=== PATIENT | female | born 1940 | race Caucasian/White ===

== ENCOUNTER → 2023-08-23 16:48 | Outpatient (REF) | payer OTHER, SELFPAY ==
[2023-08-23 17:49] LABS: % Basophils 0.3 % (0-2); % Eosinophils 1.2 % (0-6); % Immature Granulocytes 0.4 % (0-0.5); % Lymphocytes 19.9 % (20.5-51.1); % Monocytes 13.9 % (1.7-9.3); % Neutrophils 64.3 % (42.2-75.2); Absolute Eosinophils 0.1 10^3/uL (0-0.7); Absolute Lymphocytes 1.5 10^3/uL (1.2-3.4); Absolute Monocytes 1.1 10^3/uL (0.1-0.6); Mean Corp Hgb Conc. 33.3 g/dL (33.0-37.0); Mean Corpuscular Hgb 34.3 pg (27.0-31.0); Mean Corpuscular Volume 102.9 fL (81.0-99.0); Mean Platelet Volume 9.6 fL (7.4-10.4); Nucleated Red Blood Cells % 0 %; Platelet Count 194 10^3/uL (130-400); Red Blood Cell Count 3.79 10^6/uL (4.20-5.40); Red Cell Dist. Width 13.3 % (11.5-14.5); White Blood Cell Count 7.8 10^3/uL (4.8-10.8)
[2023-08-23 18:07] LABS: Albumin 4.1 g/dl (3.5-5.0); Blood Urea Nitrogen 21 mg/dl (7-17); Calcium 9.7 mg/dl (8.4-10.2); Carbon Dioxide 31 mmol/L (22-30); Chloride 102 mmol/L (98-107); Glucose 105 mg/dl (70-99); Phosphorus 3.8 mg/dl (2.5-4.5); Potassium 4.1 mmol/L (3.5-5.1); Sodium 141 mmol/L (135-145); eGFR 49.55
[2023-08-23 18:10] LABS: NT-proBNP 584 pg/ml
== END ==
LOC: REG 16:48
PROVIDERS: ATTENDING PHYSICIAN Internal Medicine
DX: I87.2 Venous insufficiency (chronic) (peripheral) (principal); I10 Essential (primary) hypertension; I48.0 Paroxysmal atrial fibrillation
CPT/HCPCS: 36415; 80069; 83880; 85025

== ENCOUNTER 2023-08-27 18:34 | Emergency (ER) | payer OTHER, SELFPAY ==
[2023-08-27 18:41] VITALS: BP 154/95
[2023-08-27 20:12] VITALS: BMI 39.6
--- NOTE | 2023-08-27 20:29 | ED.GENMED ---
History of Present Illness
General
Chief Complaint: Swelling
Source: patient
Exam Limitations: none
Time Seen by Provider: 08/27/23 20:06
Travel History
Have you had any contact with someone who has COVID-19?: No
Do you have any symptoms of coronavirus? Fever > 100 degrees, chills, cough, shortness of breath, sore throat, loss of taste or smell, muscle aches, or headache?: No
History of Present Illness
History of Present Illness:
83-year-old female complaining of bilateral lower extremity swelling and fluid leaking.. No chest pain or shortness of breath. Symptoms for a few weeks but is vague about the onset. Patient states 1 month ago she was doing well with swelling
after seeing her dairy clerk. At that time she had stopped her diuretic but he stated she should take it 3 days a week. Since then she admits she has not been faithful about taking it. She took it once earlier in the week and took it yesterday.
Past History
Past History
ED Past Medical History: CVA, GERD, HTN, Other (pulmonary embolism, neuropathy) and Other (Restless leg syndrome)
ED Past Surgical History: Orthopedic and Tonsilectomy
Social History
Tobacco: Non-smoker
Alcohol: Occasional
Drug: None
Personal:
Living: with family
Family History
Family History: Diabetes, CAD and Other (Peripheral neuropathy)
Review of Systems
Review of Systems
All Other Systems: Not applicable
Constitutional: Denies fever
Respiratory: Reports no symptoms
Cardiac: Reports no symptoms
Phy Exam
Physical Exam
Physical Exam:
GENERAL: Alert and oriented in no apparent distress
EYE: Orbits normal.
NECK: Supple
CARDIAC: Regular rate and rhythm without any obvious murmurs.
LUNGS: Clear breath sounds,normal
ABDOMEN: Soft, without focal tenderness or distention. Elevated BMI
NEUROLOGICAL: Alert and oriented , grossly non-focal
SKIN: Warm and dry, mild diffuse erythematous changes to both lower extremities left greater than right. Small open wound to the right lower extremity anteriorly with some clear oozing
MUSCULOSKELETAL: Significant lower extremity pitting edema bilaterally. Symmetrical. Good distal pulses and color
PSYCH: Normal and appropriate interaction.
Scores
Heart Failure Risk
Heart Failure Risk Score: Yes
History of Stroke or TIA: No
History of intubation for respiratory distress: No
Heart rate on ED arrival >/= 110: No
SaO2 <90% on arrival on room air: No
HR >/=110 during 3min walk test (or too ill to perform test): No
ECG has acute ischemic changes: No
Urea >/=12mmol/L (BUN 33.6mg/dL): No
Serum CO2>/=35mmol/L: No
Troponin I or T elevated to ND Level (0.4mg/dL): No
NT-proBNP >/=5,000ng/L (5,000pg/ml): No
HF Risk Score: 0
Admission Status: LOW RISK 2.8% Consider discharge to home with f/u visit to PCP/Orthotist/Prosthetist
Course
Orders/Labs/Results
Orders:
Orders
08/27/23 20:20
Electrocardiogram (*1) Stat
Reason for Study: Other
Other Reason for Exam: chest pain
EKG- Treatment ONCE
CXR2 [CR Chest - 2 Views ] Urgent
Comment:
Reason For Exam: swelling. fluid retention
08/27/23 20:29
BNP [NT-proBNP] Urgent
Complete Blood Count/With Diff Urgent
Comprehensive Metabolic Panel Urgent
08/27/23 21:54
Furosemide [Lasix] 40 mg IV NOW STA
08/27/23 22:10
Doxycycline [Vibramycin] 100 mg PO NOW STA
Abnormal Lab Results
08/27/23
20:29
RBC 3.82 L 10^6/uL
(4.20-5.40)
MCV 100.5 H fL
(81.0-99.0)
MCH 34.6 H pg
(27.0-31.0)
Absolute Monos (auto) 0.9 H 10^3/uL
(0.1-0.6)
Monocytes % 11.8 H %
(1.7-9.3)
Sodium 134 L mmol/L
(135-145)
BUN 30 H mg/dl
(7-17)
Creatinine 1.4 H mg/dL
(0.6-1.0)
Glucose 109 H mg/dl
(70-99)
08/27/23 20:29
08/27/23 20:29
Vital Signs
Initial and Last Documented VS:
Initial Vital Signs
Temp Pulse Resp BP Pulse Ox
98.3 F 85 18 154/95 97
08/27/23 18:41 08/27/23 18:41 08/27/23 18:41 08/27/23 18:41 08/27/23 18:41
Last Documented Vital Signs
Temp Pulse Resp BP Pulse Ox
98.3 F 76 16 154/87 98
08/27/23 18:41 08/27/23 22:20 08/27/23 22:20 08/27/23 22:20 08/27/23 22:20
MDM/Problems Addressed
Differential Diagnosis Includes:
Bilateral lower extremity edema. Highly doubt DVT given bilateral nature. On Xarelto and faithful. Evaluate for renal issue CHF. Likely at least partially secondary to medication noncompliance. Workup in progress
*Radiology
Radiology exam reviewed: radiology read reviewed (Mild CHF)
*Pulse Oximetry
Patient hypoxic: no
*EKG
Interpretation: normal
Comparison EKG: no changes
Heart Rate: 71
Rate: normal
Rhythm: sinus
Friendship: left axis deviation
Interval: normal interval
QRS Pattern: normal QRS
Ischemia: no ischemia
*Critical Care Note
Total Time (30-74mins, 75-104mins- exclusive of procedures): Not Applicable
Data Reviewed
Review of Other/Old Records Reveals: Labs, Records and Testing
Update Note
Update Note:
Patient's weight up 1.3 kg from April and about 5 kg from October 2021
Patient clinically very stable. In no respiratory distress. No true respiratory symptoms. Bilateral lower extremity edema. Offered inpatient management although medically not necessary. She is comfortable with increasing her diuretic and close
outpatient follow-up. There is some erythema to the left greater than right leg. Doubt cellulitis but will cover with Doxycycline
ED Attending Note
-
Portions of this chart may have been created with voice recognition software.� Occasional wrong word or��sound alike� substitutions may have occurred due to the inherent limitations of voice recognition software.
Discharge Plan
Departure
Patient Disposition: Home (Routine Discharge)
Date of Disposition: 08/27/23
Time of Disposition: 22:08
Patient with high blood pressure during this ER visit?: Yes
Discharge Problem:
Peripheral edema/mild CHF
Instructions: Dependent Edema (DC), *CBC Heart Failure Instructions, BLOOD PRESSURE
Prescriptions:
New
doxycycline hyclate 100 mg capsule
100 mg PO BID 10 Days Qty: 20 0RF
No Action
ropinirole 1 MG tablet
1 mg PO HS
Rx Instructions:
1-3 hour before bedtime
trazodone 50 MG tablet
50 mg PO HS
Patient Comments:
pt states she hasn't used in 6 months
Caltrate-D3 Plus Minerals 1 EACH tablet
1 tab PO BID
loratadine 10 MG tablet
10 mg PO DAILY PRN (Reason: allergies)
fluticasone propionate 1 SPRAY spray,suspension
2 spray intranasal HS
losartan 50 MG tablet
50 mg PO DAILY 0RF
gabapentin 600 mg Tablet
600 mg PO BID@0600,1200
gabapentin 600 mg Tablet
1,200 mg PO HS
simvastatin 10 mg Tablet
10 mg PO QPM
Saline Mist 0.65 % Aerosol,[place]
2 spray INTRANASAL BID
fluticasone propion-salmeterol [Advair HFA] 230-21 mcg/actuation Hfa Aerosol Inhaler
2 puff INHALATION BID
Xarelto 20 MG tablet
20 mg PO DAILY
Referrals:
Joe Henderson MD [Family Provider] - Follow up in 2-3 days
Activity Restrictions/Additional Instructions:
Take one of your Lasix(furosemide) tablets daily for the next 3 days
Call your physicians Wednesday for close follow-up
Interventions
Interventions:
*Risk Screen - Suicide Last Done: 08/27/23 18:41
*General Assessment Last Done: 08/27/23 18:41
*Neglect/Abuse Screening Last Done: 08/27/23 20:12
ED- Fall Risk Assessment Last Done: 08/27/23 20:43
*ED COVID-19 Vaccine History Last Done: 08/27/23 20:12
ED- Cardiac Assessment Last Done: 08/27/23 20:43
ED- Pulmonary Assessment Last Done: 08/27/23 20:43
ED-Skin Assessment Last Done: 08/27/23 20:43
[2023-08-27 20:31] VITALS: BP 149/77
[2023-08-27 20:37] LABS: % Basophils 0.4 % (0-2); % Eosinophils 1.5 % (0-6); % Immature Granulocytes 0.4 % (0-0.5); % Lymphocytes 20.9 % (20.5-51.1); % Monocytes 11.8 % (1.7-9.3); Absolute Eosinophils 0.1 10^3/uL (0-0.7); Absolute Lymphocytes 1.5 10^3/uL (1.2-3.4); Absolute Monocytes 0.9 10^3/uL (0.1-0.6); Absolute Neutrophils 4.8 10^3/uL (1.4-6.5); Hematocrit 38.4 % (37.0-47.0); Hemoglobin 13.2 g/dL (12.0-16.0); Mean Corp Hgb Conc. 34.4 g/dL (33.0-37.0); Mean Corpuscular Hgb 34.6 pg (27.0-31.0); Mean Corpuscular Volume 100.5 fL (81.0-99.0); Mean Platelet Volume 9.2 fL (7.4-10.4); Nucleated Red Blood Cells % 0 %; Platelet Count 178 10^3/uL (130-400); Red Blood Cell Count 3.82 10^6/uL (4.20-5.40); Red Cell Dist. Width 13.2 % (11.5-14.5); White Blood Cell Count 7.4 10^3/uL (4.8-10.8)
--- NOTE | 2023-08-27 20:43 | EDRN ---
Pt says she saw wine fermenter about 3 weeks ago and her legs were fine. She was told to take her water pill 3xs/week but pt says she has not been doing that because she has been busy and often is concerned about having to go to the bathroom if she
takes it. Pt noted her lower legs started swelling 2 weeks ago. Pt saw Dr Hughes couple days ago and was again instructed to take her water pill. Pt notes increased swelling to b/l LE and has a small tear on anterior LE that is weeping. Pt
denies cp, sob, abd pain, weakness, dizziness, fever/chills/cough, urinary symptoms.
[2023-08-27 20:50] LABS: ALT (SGPT) 22 U/L (0-35); AST (SGOT) 34 U/L (14-36); Albumin 3.9 g/dl (3.5-5.0); Alkaline Phosphatase 77 U/L (38-126); Blood Urea Nitrogen 30 mg/dl (7-17); Calcium 9.3 mg/dl (8.4-10.2); Carbon Dioxide 27 mmol/L (22-30); Chloride 102 mmol/L (98-107); Estimated Creatinine Clearance 39 ml/min; Glucose 109 mg/dl (70-99); Potassium 4.4 mmol/L (3.5-5.1); Sodium 134 mmol/L (135-145); Total Bilirubin 0.7 mg/dl (0.2-1.3); Total Protein 6.7 g/dl (6.3-8.2)
[2023-08-27 20:56] LABS: NT-proBNP 238 pg/ml
[2023-08-27 21:39] VITALS: BP 146/82
[2023-08-27 22:00] VITALS: BP 145/74
[2023-08-27 22:20] VITALS: BP 154/87
[2023-08-27] MEDS: VIBRAMYCIN 100 MG PO (22:21)
[2023-08-27] MEDS: LASIX 40 MG IV (22:22)
--- NOTE | 2023-08-27 22:31 | EDRN ---
EDT dressed RLE wound with gauze pads and wrapped with gauze
== END 2023-08-27 22:35 | disposition home or self-care (01) ==
LOC: EMR 18:34
PROVIDERS: Emergency Medicine; EMERGENCY PHYSICIAN Emergency Medicine; FAMILY PHYSICIAN Internal Medicine
DX: I50.9 Heart failure, unspecified (principal); R60.9 Edema, unspecified; I11.0 Hypertensive heart disease with heart failure
CPT/HCPCS: 99285; 96374; 71046; 80053; 83880; 85025; 93005

== ENCOUNTER 2023-08-29 01:05 | Inpatient (IN) | payer OTHER, SELFPAY ==
[2023-08-28 20:15] VITALS: BMI 40.1
[2023-08-28 20:29] VITALS: BP 121/79
[2023-08-28 20:54] LABS: % Basophils 0.2 % (0-2); % Eosinophils 1.5 % (0-6); % Immature Granulocytes 0.5 % (0-0.5); % Lymphocytes 18.6 % (20.5-51.1); % Monocytes 12.5 % (1.7-9.3); % Neutrophils 66.7 % (42.2-75.2); Absolute Eosinophils 0.1 10^3/uL (0-0.7); Absolute Lymphocytes 1.6 10^3/uL (1.2-3.4); Absolute Monocytes 1.1 10^3/uL (0.1-0.6); Absolute Neutrophils 5.9 10^3/uL (1.4-6.5); Hematocrit 38.4 % (37.0-47.0); Mean Corp Hgb Conc. 33.9 g/dL (33.0-37.0); Mean Corpuscular Hgb 34.7 pg (27.0-31.0); Mean Corpuscular Volume 102.4 fL (81.0-99.0); Mean Platelet Volume 9.2 fL (7.4-10.4); Nucleated Red Blood Cells % 0 %; Platelet Count 185 10^3/uL (130-400); Red Blood Cell Count 3.75 10^6/uL (4.20-5.40); Red Cell Dist. Width 13.2 % (11.5-14.5); White Blood Cell Count 8.8 10^3/uL (4.8-10.8)
[2023-08-28 21:30] LABS: ALT (SGPT) 24 U/L (0-35); AST (SGOT) 44 U/L (14-36); Albumin 4.2 g/dl (3.5-5.0); Alkaline Phosphatase 79 U/L (38-126); Blood Urea Nitrogen 35 mg/dl (7-17); Calcium 9.2 mg/dl (8.4-10.2); Carbon Dioxide 28 mmol/L (22-30); Chloride 104 mmol/L (98-107); Glucose 106 mg/dl (70-99); Potassium 4.5 mmol/L (3.5-5.1); Sodium 137 mmol/L (135-145); Total Bilirubin 0.9 mg/dl (0.2-1.3); Total Protein 6.9 g/dl (6.3-8.2); eGFR 25.72
[2023-08-28 21:40] LABS: NT-proBNP 200 pg/ml
--- NOTE | 2023-08-28 23:32 | ED.GENMED ---
History of Present Illness
General
Chief Complaint: Swelling
Source: patient
Exam Limitations: none
Time Seen by Provider: 08/28/23 23:18
Travel History
Have you had any contact with someone who has COVID-19?: No
Do you have any symptoms of coronavirus? Fever > 100 degrees, chills, cough, shortness of breath, sore throat, loss of taste or smell, muscle aches, or headache?: No
History of Present Illness
History of Present Illness:
83-year-old female presents complaining of increased swelling and pain to the bilateral lower extremities. She was seen here last night with lower extremity edema. Given IV Lasix but then discharged. She states she is not urinating. Please note
that the triage note says that she is urinating more frequency but she has not been urinating as frequent since the administration of the diuretic. She denies chest pain or new onset shortness of breath. She is on Xarelto and has not missed any
doses. She notes increased fluid oozing from the legs.
Past History
Past History
ED Past Medical History: CVA, GERD, HTN, Other (pulmonary embolism, neuropathy) and Other (Restless leg syndrome)
ED Past Surgical History: Orthopedic and Tonsilectomy
Social History
Tobacco: Non-smoker
Alcohol: Occasional
Drug: None
Personal:
Living: with family
Family History
Family History: Diabetes, CAD and Other (Peripheral neuropathy)
Phy Exam
Physical Exam
Physical Exam:
General: Well-appearing female no acute distress
HEENT: Normocephalic atraumatic
Heart: Regular rate and rhythm no murmurs
Lungs: Clear to auscultation bilaterally no wheezing
Abdomen is soft nondistended nontender no guarding rebound normal bowel sounds
Extremities: No cyanosis but significant pitting edema bilateral lower extremities. There is a serous drainage noted from the right leg.
Vascular: Palpable pulses dorsal aspect bilateral feet
Scores
Heart Failure Risk
Heart Failure Risk Score: Not Applicable
Course
Orders/Labs/Results
Orders:
Orders
08/28/23 20:47
Complete Blood Count/With Diff Urgent
Comprehensive Metabolic Panel Urgent
NT-proBNP Urgent
08/28/23 23:37
Furosemide [Lasix] 20 mg IV NOW STA
Abnormal Lab Results
08/28/23
20:47
RBC 3.75 L 10^6/uL
(4.20-5.40)
MCV 102.4 H fL
(81.0-99.0)
MCH 34.7 H pg
(27.0-31.0)
Absolute Monos (auto) 1.1 H 10^3/uL
(0.1-0.6)
Lymphocytes % 18.6 L %
(20.5-51.1)
Monocytes % 12.5 H %
(1.7-9.3)
BUN 35 H mg/dl
(7-17)
Creatinine 1.9 H mg/dL
(0.6-1.0)
Glucose 106 H mg/dl
(70-99)
AST 44 H U/L
(14-36)
08/28/23 20:47
08/28/23 20:47
Vital Signs
Initial and Last Documented VS:
Initial Vital Signs
Temp Pulse Resp BP Pulse Ox
98.2 F 90 18 121/79 94
08/28/23 20:29 08/28/23 20:29 08/28/23 20:29 08/28/23 20:29 08/28/23 20:29
Last Documented Vital Signs
Temp Pulse Resp BP Pulse Ox
98.2 F 90 18 121/79 94
08/28/23 20:29 08/28/23 20:29 08/28/23 20:29 08/28/23 20:29 08/28/23 20:29
MDM/Problems Addressed
Differential Diagnosis Includes:
Volume excess. Question possible CHF. She was given Lasix last evening but has not noticed any improvement. She notes increased pain to her legs. Both legs are slightly erythematous. She was started on doxycycline Assubel cellulitis. Kidney
functions today have worsened from 1.4 yesterday of the creatinine to 1.9 today. Yesterday showed mild CHF.
*Critical Care Note
Total Time (30-74mins, 75-104mins- exclusive of procedures): Not Applicable
Update Note
Update Note:
No urinary retention on bladder scan. Patient failing to respond to increasing diuretic from yesterday. She is volume overloaded with worsening kidney function. Will admit to hospital
ED Attending Note
-
Portions of this chart may have been created with voice recognition software.� Occasional wrong word or��sound alike� substitutions may have occurred due to the inherent limitations of voice recognition software.
Discharge Plan
Departure
Patient Disposition: Admit
Date of Disposition: 08/28/23
Time of Disposition: 23:40
Admit to: Telemetry
Presentation/result/management discussed w/ accepting MD/DO: Hospitalist
Discharge Problem:
Volume overload
Prescriptions:
No Action
ropinirole 1 MG tablet
1 mg PO HS
Rx Instructions:
1-3 hour before bedtime
trazodone 50 MG tablet
50 mg PO HS
Patient Comments:
pt states she hasn't used in 6 months
Caltrate-D3 Plus Minerals 1 EACH tablet
1 tab PO BID
loratadine 10 MG tablet
10 mg PO DAILY PRN (Reason: allergies)
fluticasone propionate 1 SPRAY spray,suspension
2 spray intranasal HS
losartan 50 MG tablet
50 mg PO DAILY 0RF
gabapentin 600 mg Tablet
600 mg PO BID@0600,1200
gabapentin 600 mg Tablet
1,200 mg PO HS
simvastatin 10 mg Tablet
10 mg PO QPM
Saline Mist 0.65 % Aerosol,[place]
2 spray INTRANASAL BID
fluticasone propion-salmeterol [Advair HFA] 230-21 mcg/actuation Hfa Aerosol Inhaler
2 puff INHALATION BID
Xarelto 20 MG tablet
20 mg PO DAILY
doxycycline hyclate 100 mg capsule
100 mg PO BID 10 Days Qty: 20 0RF
Referrals:
Joe Henderson MD [Family Provider] -
Interventions
Interventions:
*Risk Screen - Suicide Last Done: 08/28/23 20:32
*General Assessment Last Done: 08/28/23 20:32
*Neglect/Abuse Screening Last Done: 08/28/23 20:33
[2023-08-28 23:37] VITALS: BP 128/59
--- NOTE | 2023-08-28 23:43 | HPS.HSE ---
Addendum entered and electronically signed by Dashawn Caemron MD 08/29/23 00:22:
I saw and examined the patient.
The DIGESTION OPERATOR or PA's note was reviewed and I agree with the note.
Comment:
HPI
83F Obese HX PE on Eliquis, KEI , HX intolerance to CPAP seen at ER yesterday for b/l Radha edema. IV lasix 20 was given and DC'd. She was on PO lasix 40 daily. She returned to ER today due to b/l Radha with edema , redness and weeping from from
ruptured blisters.
ROS
Report decreased urine output
PHX
HX bilateral pulmonary embolus/cerebrovascular accident.
Essential hypertension.
Restless legs syndrome, neuropathy.
HX Subclinical hypothyroid.
HX hyponatremia.
Orthopedic
Tonsillectomy
SHX
Tobacco: Non-smoker
Alcohol: Occasional
Drug: None
Personal:
Living: with family
FHX
Diabetes, CAD and Other (Peripheral neuropathy)
Reviewed VS: unremarkable
PE
BMI 39 class II obesity
Gen: not toxic
HEENT: anicteric
Neck: supple, cannot see JVD
Lungs: CTA
Cor: RRR S1 S2
Abdomen: soft NT NG NRT
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
MS: significant pitting edema bilateral lower extremities + b/l warm aching erythema a with faint demarcation + coin size small weeping ulcer at Rt jay.
Psych: appropriate
Data
Unremarkable CBC
BUN 35
Cr 1.9 - 1.4 yesterday, base line is low 1s
GFR 25- was 37 , suspect CKD3
proBNP 200
08/26/ CXR: Mild CHF
11/18/21 ECHO:
LVEF 60-65
Mild
Mild TR
Last hospitalist admission: 11/06/21 - 5/26/22
DC Dx: Age-indeterminate intra-articular fracture involving the left femoral head with subchondral component.
ASSESSMENT & PLAN
Pending Rx reconciliation
Probably b/l Radha cellulitis with worsening b/l Radha edema with serosanguineous drainage
Unremarkable pro BNP for acute HF
Suspect underlying chr venous stasis
- Allergy to PCN
- Empiric IV vancomycin. DC'd PO doxycycline
- check b/l Leg US
- Hold off further Lasix
- ECHO to sharmaine RV and LV, PHT
- CBC card consult
WANDA - likley overdiuresis rather than cardiorenal syndrome due to RHF or CHF
NEG retention per ER bladder scan
HX CKD3
- Held Losartan
- Held Lasix and observe Cr
- Renal consult
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
HX Bilateral PE in the setting of immobilization: on xarelto
HX CVA.
Essential hypertension: held losartan due to WANDA
HX hyponatremia.
HX KEI : She was intolerant to CPAP
HX COPD history, we did continue her on Advair and DuoNebs.
Restless legs syndrome: cont. Requip.
Neuropathy: cont gabapentin.
HX Subclinical hypothyroidism
DVT Px: on Xarelto
Code: Full code
IP TLM
Original Note:
Family Physician
-
Family Physician: Joe Henderson
Chief Complaint
-
b/l LE edema
History of Present Illness
83-year-old female with PMH for PE, CVA,GERD<HTN, RLS, CHF presented to us with b/l LE edema for past two weeks. her PCP recommended to continue to take Lasix. she was evaluated in the ER last night, gave a dose of IV Lasix and sent home. patient
stated, she did not voided much. stated sob with mild exertion. B/L LE draining today. she thinks she might have gained, but does not weigh herself. denied chest pain. denied fever, chills, runny nose, congestion, cough. denied RUEDA, dizzy or
syncopal episode. denied abdominal pain, n,v, d. denied dysuria or hematuria.
patient received a dose of Lasix in ER. admitting for further management.
Medical History
Past Medical History
Past Medical History: Reports Other
Additional Past Medical History:
PE
HTN
CHF
RLS
Past Surgical History: Reports Other
Additional Past Surgical History:
tonsillectomy
Social History
Tobacco: Non-smoker
Alcohol: Occasional
Drug: None
Family History
Family History: Not pertinent
Allergies / Home Medications
Allergies reflects when Allergies were last updated in [facility].
Home Medications with original date entered in [facility]
Allergy/Medication List:
Allergies
Allergy/AdvReac Type Severity Reaction Status Date / Time
cat dander Allergy NASAL Verified 08/27/23 18:41
CONGESTION
dog dander Allergy NASAL Verified 08/27/23 18:41
CONGESTION
grass pollen Allergy VAL Verified 08/27/23 18:41
GRASS-NASAL
CONGESTION
mold Allergy NASAL Verified 08/27/23 18:41
CONGESTION
Penicillins Allergy Rash IN Verified 08/27/23 18:41
CHILDHOOD
Home Medications
ropinirole 1 mg tablet 1 mg PO HS Neurological Condition 03/13/11
trazodone 50 mg tablet 50 mg PO HS 05/19/18
calcium carb 300 mg-D3 20 mcg-mag ox 25 mg-asbestos microscopist 0.5 [id number] tablet (Caltrate-D3 Plus Minerals) 1 tab PO BID Supplement 12/16/19
loratadine 10 mg tablet 10 mg PO DAILY PRN allergies 01/02/21
fluticasone propionate 50 mcg/actuation nasal spray,suspension 2 spray intranasal HS Allergies 11/07/21
losartan 50 mg tablet 50 mg PO DAILY 11/18/21
doxycycline hyclate 100 mg capsule 100 mg PO BID 10 days #20 caps 08/27/23
fluticasone propionate 230 mcg-salmeterol 21 mcg/actuation HFA inhaler (Advair HFA) 2 puff inhalation BID 08/27/23
gabapentin 600 mg tablet 1,200 mg PO HS 08/27/23
gabapentin 600 mg tablet 600 mg PO BID@0600,1200 08/27/23
rivaroxaban 20 mg tablet (Xarelto) 20 mg PO DAILY Blood clot prevention/tx 08/27/23
simvastatin 10 mg tablet 10 mg PO QPM 08/27/23
sodium chloride 0.65 % nasal spray aerosol (Saline Mist) 2 spray intranasal BID 08/27/23
Review of Systems
-
Constitutional: Reports No Symptoms
EENT: Reports No Symptoms
Respiratory: Reports Trouble Breathing
Cardiac: Reports Other (b/l LE edema)
Abdomen/GI: Reports No Symptoms
: Reports No Symptoms
Musculoskeletal: Reports No Symptoms
Skin: Reports Other (b/l LE weeping)
Neurological: Reports No Symptoms
Endocrine: Reports No Symptoms
Hematologic/Lymphatic: Reports No Symptoms
Psych: Reports No Symptoms
Physical Exam
Vital Signs
Vital Signs
Temp Pulse Resp BP Pulse Ox
98.2 F 90 18 121/79 94
08/28/23 20:29 08/28/23 20:29 08/28/23 20:29 08/28/23 20:29 08/28/23 20:29
Physical Exam
General: Well Developed, Well Nourished and No Apparent Distress
HEENT: NormoCephalic, Moist mucous membranes and Atraumatic
Respiratory: Clear
Cardiac: S1/S2 and Regular Rhythm; No Murmur or Rub
GI: Soft, Non Tender, Non Distended and Normal Bowel Sounds; No Organomegaly
Rectal: Deferred by Provider
Musculoskeletal: No Clubbing, No Cyanosis and Other (b/l Le red, swollen weeping)
Skin: No Rash
Neuro: AO x 3 and Nonfocal/grossly intact
Psych: Calm
Laboratory Results
-
08/28/23 20:47
08/28/23 20:47
Laboratory Results
Total Bilirubin 0.9 mg/dl (0.2-1.3) 08/28/23 20:47
AST 44 U/L (14-36) H 08/28/23 20:47
ALT 24 U/L (0-35) 08/28/23 20:47
Alkaline Phosphatase 79 U/L (38-126) 08/28/23 20:47
Data Reviewed
-
Diagnostic Radiology: Report Reviewed by me
Lab Data: Labs Reviewed by me
Impression/Plan
-
#b/l LE edema mild CHF exacerbation
-[id number]
-chest x ray mild CHF
-received a dose of Lasix in ER
-hold Lasix until evaluated by cardiology
-echo
-strict I &O
-daily weight
-cardiology consulted
#B/L edema, redness likely cellulitis
-iv vanco
-Tylenol prn for fever
-ctm
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
-cr 1.9
-ctm
-nephrology consulted
#hxt of PE
-xarelto continued
#Essential htn
-hold losartan
#RLS
-Requip, gabapentin continued
#DVT prophylaxis
-Xarelto
#CODE status
-full code
[2023-08-28] MEDS: LASIX 20 MG IV (23:57)
[2023-08-29] VITALS (11 sets, daily range): BP systolic 108–163; BP diastolic 51–75; PULSE 69–74; O2SAT 96–97; BMI 38.0
[2023-08-29] MEDS: VANCOCIN 540 MG IV (02:14)
[2023-08-29] MEDS: TYLENOL 650 MG PO (02:51)
[2023-08-29] MEDS: ROXICODONE 5 MG PO (04:05)
[2023-08-29] MEDS: NEURONTIN 300 MG PO ×3 (05:25→21:06)
--- NOTE | 2023-08-29 06:38 | PTCARENOTE ---
Received patient from ER, AAOx4. Patient able to transfer from stretcher to bed with assist of rolling walker. Patient with edema to b/l legs, right lower leg weeping clear fluid. Area cleansed and treatment applied. C/o pain to lower legs and
given tylenol. Tylenol ineffective and stat order of Oxycodone ordered and given. Legs elevated. Oriented to unit. Call betancourt in reach. Plan of care continues.
[2023-08-29] MEDS: ADVAIR HFA 230/21 MCG INHALER 2 PUFF INH ×2 (07:25→20:40)
[2023-08-29 08:11] LABS: Hemoglobin 11.6 g/dL (12.0-16.0); Mean Corp Hgb Conc. 32.2 g/dL (33.0-37.0); Mean Corpuscular Hgb 33.7 pg (27.0-31.0); Mean Corpuscular Volume 104.7 fL (81.0-99.0); Mean Platelet Volume 9.8 fL (7.4-10.4); Platelet Count 181 10^3/uL (130-400); Red Blood Cell Count 3.44 10^6/uL (4.20-5.40); Red Cell Dist. Width 13.2 % (11.5-14.5); White Blood Cell Count 6.9 10^3/uL (4.8-10.8)
[2023-08-29 08:57] LABS: ALT (SGPT) 18 U/L (0-35); AST (SGOT) 30 U/L (14-36); Albumin 3.2 g/dl (3.5-5.0); Alkaline Phosphatase 73 U/L (38-126); Blood Urea Nitrogen 30 mg/dl (7-17); Calcium 8.3 mg/dl (8.4-10.2); Carbon Dioxide 27 mmol/L (22-30); Chloride 106 mmol/L (98-107); Direct Bilirubin 0.1 mg/dl (0.0-0.4); Estimated Creatinine Clearance 33 ml/min; Glucose 85 mg/dl (70-99); HDL Cholesterol 61 mg/dl; LDL Cholesterol, Calculated 57 mg/dl; Potassium 3.4 mmol/L (3.5-5.1); Sodium 137 mmol/L (135-145); Total Bilirubin 0.6 mg/dl (0.2-1.3); Total Cholesterol 134 mg/dl (50-199); Total Protein 5.6 g/dl (6.3-8.2); Triglyceride 84 mg/dl (10-149); Very Low Density Lipoprotein 16 mg/dl (0-30); eGFR 31.61
[2023-08-29] MEDS: XARELTO 20 MG PO (09:03)
--- NOTE | 2023-08-29 10:59 | PHA.VAN.IN ---
Assessment
- Assessment
Renal Function: Appears elevated from baseline (1.1 on 06/23/23)
Maximum Temperature: 98.2 08/28/23 at 20:29
Minimum Temperature: 97.4 08/29/23 at 03:55
Plan
- Plan
Initial / Loading Dose: Vancomycin 2000mg IV x 1 dose given today at 02:14
Maintenance Regimen: Dose by level
Monitoring: Random Vancomycin level ordered for 08/30/23 at 06:00
Pharmacokinetics Vancomycin I
- -
Patient Age: 83
Patient Sex: Female
Vancomycin Day #: 1
Indication: Skin And Soft Tissue
Requesting Provider: Cornelio ANSARI
Pertinent Antimicrobial Allergies:
Penicillin-Rash in childhood but has tolerated multiple courses of cefazolin. Last one November 2021
Height / Weight:
Height 5 ft 7 in
Actual Weight 109.968 kg
IBW in k.6
Adjusted BW in k.9
Pertinent Past Medical History: BMI-38, PE
- Vital Signs / Lab Results
Temp Pulse Resp BP Pulse Ox
97.7 F 76 18 137/65 92
08/29/23 07:37 08/29/23 07:37 08/29/23 07:37 08/29/23 07:37 08/29/23 07:37
Lab Results - Hematology
08/28/23 08/29/23
20:47 06:11
WBC 8.8 6.9
Lab Results - Chemistry
08/28/23 08/29/23
20:47 06:10
BUN 35 H 30 H
Creatinine 1.9 H 1.6 H
Estimated Creat Clear 33
Albumin 4.2 3.2 L
--- NOTE | 2023-08-29 11:45 | CON.CAR ---
Consultation
Consultation Request
Date/Time Consultation Requested: August 29, 2023 7 AM
Date/Time Consultation Performed: August 29, 2023 11:45 AM
Requesting Provider: Hospitalist
Performing Provider: Bradley
Reason for Consultation: Heart failure
Medical History
-
Chief Complaint: Swelling
History of Present Illness:
83-year-old female with past medical history of PE, CVA, hypertension, GERD, restless leg syndrome and heart failure preserved ejection fraction who is here today with worsening lower extremity edema. She tells me that over the last few weeks she
has noticed worsening lower extremity edema. She has also noticed some mild shortness of breath. Her weight has increased as well. She tells me she takes Lasix 3 times a week however, I do not see it on her medication list. Regardless, it sounds
as if she was eating a lot of soup from takeout and grocery store which I discussed with her has a lot of salt content in it. It appears that this is likely what caused her to have a heart failure exacerbation. She tells me that her legs have
gotten so swollen and have started to weep. She presented into the emergency room and was admitted with IV Lasix.
Past Medical History
Past Medical History: Other (PE, CVA, hypertension, GERD, restless leg syndrome and heart failure preserved ejection fraction)
Past Surgical History: Tonsilectomy
Social History
Tobacco: Non-Smoker
Alcohol: Occasional
Drug: None
Personal:
Living: With Family
Family History
Family History: Reviewed & Not Pertinent
Allergies / Home Medications
Allergy/AdvReac Type Severity Reaction Status Date / Time
cat dander Allergy NASAL Verified 08/27/23 18:41
CONGESTION
dog dander Allergy NASAL Verified 08/27/23 18:41
CONGESTION
grass pollen Allergy VAL Verified 08/27/23 18:41
GRASS-NASAL
CONGESTION
mold Allergy NASAL Verified 08/27/23 18:41
CONGESTION
Penicillins Allergy Rash IN Verified 08/29/23 10:56
CHILDHOOD/tolerates
cefazolin
Medication Instructions Recorded Confirmed Type
ropinirole 1 mg tablet 1 mg PO HS Neurological Condition 03/13/11 08/29/23 History
fluticasone propionate 50 2 spray intranasal HS Allergies 11/07/21 08/29/23 History
mcg/actuation nasal
spray,suspension
losartan 50 mg tablet 50 mg PO DAILY 11/18/21 08/29/23 Rx
fluticasone propionate 230 2 puff inhalation BID 08/27/23 08/29/23 History
mcg-salmeterol 21 mcg/actuation Lung/Breathing Issues
HFA inhaler (Advair HFA)
gabapentin 600 mg tablet 300 mg PO BID@0600,1200 08/27/23 08/27/23 History
Neurological Condition
gabapentin 600 mg tablet 600 mg PO HS Neurological Condition 08/27/23 08/29/23 History
rivaroxaban 20 mg tablet (Xarelto) 20 mg PO DAILY Blood clot 08/27/23 08/29/23 History
prevention/tx
simvastatin 10 mg tablet 10 mg PO QPM High Cholesterol 08/27/23 08/29/23 History
Review of Systems
-
All other systems: Negative unless noted
Physical Exam
Vital Signs
Temp Pulse Resp BP Pulse Ox
97.7 F 76 18 137/65 92
08/29/23 07:37 08/29/23 07:37 08/29/23 07:37 08/29/23 07:37 08/29/23 07:37
Lab Results
08/29/23 06:11
08/29/23 06:10
Ead-X-Kxnlvkkotbg Pept 200 pg/ml 08/28/23 20:47
Physical Exam
General: Well Developed and Well Nourished
HEENT: Normocephalic and Anicteric
Respiratory: Crackles and Non Labored Respirations
Cardiac: Regular Rhythm and Peripheral Edema
GI: Soft
Musculoskeletal: No Clubbing and Edema (2+)
Skin: Warm
Neuro: AO x 3
Psych: Calm
Impression / Plan
-
83-year-old female with past medical history of PE, CVA, hypertension, GERD, restless leg syndrome and heart failure preserved ejection fraction who is here today with worsening lower extremity edema and consistent with an acute on chronic heart
failure preserved ejection fraction exacerbation.
Acute on chronic heart failure preserved ejection fraction
-TTE
-Lasix 40 mg IV twice daily, will likely need to be sent home on 40 daily
-Continue losartan
-K greater than 4 mag greater than 2
Hypertension
-Continue losartan
PE and CVA
-Continue Xarelto
Hyperlipidemia continue simvastatin
Data Reviewed
-
EKG: Tracing Personally Visualized and interpreted
Radiology: Report Reviewed by me
Medical Tests (Nuc Med, Echo etc): Report Reviewed by me
Labs: Labs Reviewed by me
[2023-08-29] MEDS: LASIX 40 MG IV (12:16)
--- NOTE | 2023-08-29 16:02 | CM ---
Alert awake oriented patient who lives with her Jorge Alberto who lives in a 2 story home with 0 steps to enter and lives on first floor. She is independent in driving and in all activities of daily living.She use a walker Offered VN she is unsure
on VN at dc..
Had [facility] Hx / No SNF HX
Pharmacy [facility]
PCP Dr Henderson
PLAN Home Aj to offer Vn at tn. Pt unsure
--- NOTE | 2023-08-29 16:42 | W.PN.HOSP.TC ---
Addendum entered and electronically signed by Bryan Mackay MD 08/30/23 12:31:
Correction- 'Continue dialysis' Should read as 'Continue diuresis'
Addendum entered and electronically signed by Bryan Mackay MD 08/29/23 16:47:
Hypokalemia-replace
Original Note:
Today's Communication/Plan
-
Continue dialysis
Follow labs
Echo tomorrow
Assessment / Plan
Assessment / Plan
83-year-old female with bilateral respiratory she has sleep apnea noncompliant/intolerant with CPAP.
CVS: S1-S2 normal, Sm aortic area
Chest: CTA B/L
Abdomen: Soft, NT / Bowel sounds present
Extremities: B/L LE edema, small ulcer on the dorsum of the right leg
CONTENT DESIGNER: Non focal exam
# Lower extremity cellulitis secondary to worsening edema
Chronic venous stasis
IV antibiotics
# CHF-likely has acute on chronic heart failure with preserved ejection fraction
Likely has a competent of right heart failure also
Continue diuresis
Cardiology consult
Check echo
# Acute kidney injury
Unclear if cardiorenal-likely
Losartan on hold
Continue Lasix
Creatinine coming down with diuresis
# History of non-STEMI
# Elevated AST likely secondary to fluid overload
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
# Hypertension-hold losartan

# Aortic stenosis
# History of CVA
# Sleep apnea-CPAP intolerant
# COPD-on Advair and DuoNeb-continue
# Asthma
# Restless leg syndrome-on Requip
# Neuropathy NOS-on gabapentin
# Hyperlipidemia-on statin
# Obesity
# History of melanoma
# Arthritis/spinal stenosis
# DVT prophylaxis-on Xarelto
# Full code
Discussed with nursing
Anticipated Discharge: 24 - 48 hours
Subjective/Interval History
-
Date of Service: August 29, 2023
Objective Data
-
Labs:
Laboratory Results
08/29/23 08/29/23
06:10 06:11
WBC 6.9
Hgb 11.6 L
Hct 36.0 L
Plt Count 181
Sodium 137
Potassium 3.4 L
Chloride 106
Carbon Dioxide 27
BUN 30 H
Creatinine 1.6 H
Glucose 85
Calcium 8.3 L
Total Bilirubin 0.6
AST 30
ALT 18
Alkaline Phosphatase 73
Vital Signs:
Vital Signs
Temp Pulse Resp BP Pulse Ox
97.9 F 69 18 139/66 96
08/29/23 15:15 08/29/23 15:15 08/29/23 15:15 08/29/23 15:15 08/29/23 15:15
I&O
08/28/23 08/29/23 08/30/23
06:59 06:59 06:59
Intake Total 500 / 500
Output Total 500 / 500
Balance 500 / 0 -500 / -500
[2023-08-29] MEDS: KCL 40 MEQ PO (17:02)
[2023-08-29] MEDS: LIPITOR 10 MG PO (17:02)
[2023-08-29] MEDS: REQUIP 1 MG PO (21:06)
[2023-08-29] MEDS: MIRALAX 17 GRAMS PO (21:20)
[2023-08-30] VITALS (7 sets, daily range): BP systolic 119–160; BP diastolic 58–116; PULSE 80; O2SAT 96; BMI 38.3
[2023-08-30] MEDS: NEURONTIN 300 MG PO ×3 (05:11→21:21)
[2023-08-30] MEDS: ADVAIR HFA 230/21 MCG INHALER 2 PUFF INH ×2 (07:09→19:15)
--- NOTE | 2023-08-30 08:31 | W.PN.CD ---
Today's Communication / Plan
-
echo
continue Lasix 40 mg IV twice daily
labs pending
Impression / Plan
-
83-year-old female with past medical history of PE, CVA, hypertension, GERD, restless leg syndrome and heart failure preserved ejection fraction who is here today with worsening lower extremity edema and consistent with an acute on chronic heart
failure preserved ejection fraction exacerbation.
Acute on chronic heart failure preserved ejection fraction
-severe, requiring hospitalization and close monitoring of labs and tele
-echo
-continue Lasix 40 mg IV twice daily
-will likely need 40mg daily at home (previously on //)
-no SGLT2i yet given WANDA
WANDA
-AM labs pending
-hold losartan
Hypertension
-holing losartan due to WANDA
PE and CVA
-Continue Xarelto
Hyperlipidemia: continue simvastatin
Physical Exam
Vital Signs/Labs
Vital Signs
Temp Pulse Resp BP Pulse Ox
98.4 F 78 15 130/63 96
08/30/23 03:07 08/30/23 07:13 08/30/23 07:13 08/30/23 03:07 08/30/23 07:13
08/29/23 08/30/23 08/31/23
06:59 06:59 06:59
Actual Weight 109.968 kg 110.733 kg
Triglycerides 84 mg/dl (10-149) 08/29/23 06:10
LDL Cholesterol, Calc 57 mg/dl 08/29/23 06:10
VLDL Cholesterol, Calc 16 mg/dl (0-30) 08/29/23 06:10
HDL Cholesterol 61 mg/dl 08/29/23 06:10
08/28/23
20:47
Nxr-D-Nncxovorknw Pept 200
Physical Exam
Constitutional: No acute distress and Comfortable
EENT: Moist mucous membranes
Cardiovascular: Rhythm & rate is regular, Systolic murmur absent, Pedal edema present and JVD present
Respiratory: Respiratory effort normal, Lungs clear to auscul. and Wheeze Absent
GI: Soft, Distention absent and Flat
Neuro/Psych: AO x 3
Data Reviewed
-
Date of Service: August 30, 2023
EKG: Other (Tele: SR 70s)
Labs: Labs Reviewed by me
[2023-08-30 08:47] LABS: Hematocrit 40.9 % (37.0-47.0); Hemoglobin 13.7 g/dL (12.0-16.0); Mean Corp Hgb Conc. 33.5 g/dL (33.0-37.0); Mean Corpuscular Hgb 34.3 pg (27.0-31.0); Mean Corpuscular Volume 102.5 fL (81.0-99.0); Mean Platelet Volume 9.5 fL (7.4-10.4); Platelet Count 191 10^3/uL (130-400); Red Blood Cell Count 3.99 10^6/uL (4.20-5.40); Red Cell Dist. Width 13.1 % (11.5-14.5); White Blood Cell Count 5.9 10^3/uL (4.8-10.8)
[2023-08-30 08:51] LABS: Vancomycin Random 12.3 ug/ml
[2023-08-30 08:57] LABS: Blood Urea Nitrogen 25 mg/dl (7-17); Calcium 9.1 mg/dl (8.4-10.2); Carbon Dioxide 26 mmol/L (22-30); Chloride 108 mmol/L (98-107); Estimated Creatinine Clearance 49 ml/min; Glucose 97 mg/dl (70-99); Magnesium 2.3 mg/dl (1.6-2.3); Potassium 4.1 mmol/L (3.5-5.1); Sodium 138 mmol/L (135-145); eGFR 49.55
--- NOTE | 2023-08-30 09:29 | PHA.VAN.FU ---
Vancomycin Assessment / Plan
- Assessment
Renal Function: SCR Decreasing
WBC's are: WNL
In the past 24 hrs, patient has been: Afebrile
- Assessment - Therapeutic Drug Monitoring
Random Level: 12.3 - drawn ~29.5H after 2000mg loading dose
- Dosing Plan
Dosing by Level: Re-dose today (Vanc 1250mg)
- Monitoring Plan
Random Level: 08/30 0600
- Follow Up
Pharmacy will continue to follow.
Vancomycin Follow UP
- -
Patient Age: 83
Patient Sex: Female
Vancomycin Day #: 2
Indication: Skin And Soft Tissue
Requesting Provider: Cornelio ANSARI
Pertinent Antimicrobial Allergies:
Penicillin-Rash in childhood but has tolerated multiple courses of cefazolin. Last one November 2021
Height / Weight:
Height 5 ft 7 in
Actual Weight 110.733 kg
Pertinent Past Medical History: BMI ~38
- Vital Signs / Lab Results
Temp Pulse Resp BP Pulse Ox
97.8 F 79 18 143/116 94
08/30/23 07:45 08/30/23 07:45 08/30/23 07:45 08/30/23 07:45 08/30/23 07:45
Lab Results - Hematology
08/28/23 08/29/23 08/30/23
20:47 06:11 07:54
WBC 8.8 6.9 5.9
Lab Results - Chemistry
08/28/23 08/29/23 08/30/23
20:47 06:10 07:54
BUN 35 H 30 H 25 H
Creatinine 1.9 H 1.6 H 1.1 H
Estimated Creat Clear 33 49
Albumin 4.2 3.2 L
Microbiology Results
08/29/23 02:15 MRSA Screen - Final
Nose No Methicillin Resistant Staphylococcus aureus isolated.
Therapeutic Drug Monitoring
Random Vancomycin 12.3 ug/ml 08/30/23 07:54
[2023-08-30] MEDS: XARELTO 20 MG PO (09:33)
[2023-08-30] MEDS: LASIX 40 MG IV ×2 (09:33→16:47)
--- NOTE | 2023-08-30 12:04 | CM ---
Patient seen bedside, requesting [facility] upon discharge. TT sent to Maren with [facility]. Patient inquiring about private caregivers who assist with cooking meals. CM will provide list of private caregivers along with information on [facility],
unsure if caregivers assist with meal cooking. Patient reports her broke his ankle and is currently in rehab and will be home next week. CM will continue to follow for discharge planning needs.
Plan; home with [facility] pending acceptance, list of private caregivers provided.
--- NOTE | 2023-08-30 12:36 | W.PN.HOSP.TC ---
Today's Communication/Plan
-
Diuresis
Needs 2 Evan bandages to each leg to wrap properly
Assessment / Plan
Assessment / Plan
83-year-old female with bilateral respiratory she has sleep apnea noncompliant/intolerant with CPAP.
CVS: S1-S2 normal, Sm aortic area
Chest: CTA B/L
Abdomen: Soft, NT / Bowel sounds present
Extremities: B/L LE edema, small ulcer on the dorsum of the right leg
edema slightly better
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
# Lower extremity cellulitis secondary to worsening edema
Chronic venous stasis
IV antibiotics
# CHF-likely has acute on chronic heart failure with preserved ejection fraction
Likely has a competent of right heart failure also
Continue diuresis
Cardiology following.
Echo 08/30/2023-normal biventricular size and systolic function. Ejection fraction 55 to 60%. Mild . Trace AI.
# Acute kidney injury
Unclear if cardiorenal-likely
Losartan on hold
Continue Lasix
Creatinine coming down with diuresis
Surprisingly echo looks normal!
# History of non-STEMI
# Elevated AST likely secondary to fluid overload
# Hypertension-hold losartan

# History of non-STEMI
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
# Aortic stenosis
# History of CVA
# Sleep apnea-CPAP intolerant
# COPD-on Advair and DuoNeb-continue
# Asthma
# Restless leg syndrome-on Requip
# Neuropathy NOS-on gabapentin
# Hyperlipidemia-on statin
# Obesity
# History of melanoma
# Arthritis/spinal stenosis
# DVT prophylaxis-on Xarelto
# Full code
Discussed with nursing
D/W Cards
Pt says she has not family other than
Called [facility] [phone]- at the number she gave me went to message
Also called [phone] listed. No answer.
Anticipated Discharge: 24 - 48 hours
Subjective/Interval History
-
Date of Service: August 30, 2023
Objective Data
-
Labs:
Laboratory Results
08/30/23
07:54
WBC 5.9
Hgb 13.7
Hct 40.9
Plt Count 191
Sodium 138
Potassium 4.1
Chloride 108 H
Carbon Dioxide 26
BUN 25 H
Creatinine 1.1 H
Glucose 97
Calcium 9.1
Vital Signs:
Vital Signs
Temp Pulse Resp BP Pulse Ox
97.8 F 74 20 144/70 97
08/30/23 11:35 08/30/23 11:35 08/30/23 11:35 08/30/23 11:35 08/30/23 11:35
I&O
08/29/23 08/30/23 08/31/23
06:59 06:59 06:59
Intake Total 500 / 500 760 / 760
Output Total 2725 / 2725
Balance 500 / 0 -1965 / -1964
[2023-08-30] MEDS: VANCOCIN 275 MG IV (13:00)
--- NOTE | 2023-08-30 14:30 | WOUNDNOTE ---
WO RN note: Patient admitted with CHF, probably cellulitis, LE edema, RLE broken blister. Patient is . Her is currently at a SNF rehab. Patient stated VN is planned if she goes home when discharged.
See H&P for complete history.
PMH: PE (Xarelto), KEI intolerable to CPAP, HTN, 11/06/21 L femoral head fracture, CKD3, CVA, COPD, restless leg syndrome, neuropathy, venous edema.
Wound Location and type/assessment: Patient admitted with: R jay deep dermal skin tear with dry barnard fibrin. LLE with mild erythema. +1-2 LE edema. +Palpable pedal pulses. LE venous Doppler negative for DVT. MASD lower abdominal fold. Coccyx MASD.
Appetite: fair.
Pressure redistribution devices in place: [facility] air bed. She can turn self in bed.
Plan: RLE dressing changed. Bilateral knee high Evan wraps applied as ordered. Heels off bed with pillow. Air chair cushion given.
Will confirm orders with hospitalist and discussed with RN Lio.
Care plan to be updated and will follow as needed.
Note to case management requested for discharge: VN if goes home.
Recommend follow up at wound care center upon discharge.
--- NOTE | 2023-08-30 14:30 | WOUNDNOTE ---
ABDOMINAL FOLD (LOWER)
--- NOTE | 2023-08-30 16:33 | VNURNOTE ---
Home Health Liaison met with patient at 1500 to discuss [facility] nurse/therapy, visits, schedule and homebound status. Patient is agreeable and understands that visits at home will be 2-3 x per week to assess and teach medical management. Patient stated
that she has a scale and is able to log a daily weight.
VN brochure provided with contact information. Patient is aware that [facility] will contact her for start of care in 1-2 days after discharge from .
[facility] referral completed in [facility].
[2023-08-30] MEDS: LIPITOR 10 MG PO (16:47)
[2023-08-30] MEDS: DESENEX/MITRAZOL/ZEASORB 1 APPLIC TOPICAL (21:10)
[2023-08-30] MEDS: REQUIP 1 MG PO (21:21)
[2023-08-30] MEDS: ROXICODONE 5 MG PO (21:47)
[2023-08-31] VITALS (7 sets, daily range): BP systolic 120–177; BP diastolic 69–88; BMI 37.8
[2023-08-31] MEDS: NEURONTIN 300 MG PO ×3 (06:14→21:17)
[2023-08-31] MEDS: ADVAIR HFA 230/21 MCG INHALER 2 PUFF INH ×2 (07:20→19:45)
[2023-08-31 07:32] LABS: Vancomycin Random 15.9 ug/ml
[2023-08-31 07:40] LABS: Blood Urea Nitrogen 23 mg/dl (7-17); Calcium 9.1 mg/dl (8.4-10.2); Carbon Dioxide 30 mmol/L (22-30); Chloride 104 mmol/L (98-107); Estimated Creatinine Clearance 44 ml/min; Glucose 99 mg/dl (70-99); Potassium 3.9 mmol/L (3.5-5.1); Sodium 138 mmol/L (135-145); eGFR 44.64
--- NOTE | 2023-08-31 07:54 | W.PN.CD ---
Today's Communication / Plan
-
-continue Lasix 40 mg IV twice daily -> aiming for 235 lbs. or so
-will likely need 40mg daily at home (previously on )
Impression / Plan
-
83-year-old female with past medical history of PE, CVA, hypertension, GERD, restless leg syndrome and heart failure preserved ejection fraction who is here today with worsening lower extremity edema and consistent with an acute on chronic heart
failure preserved ejection fraction exacerbation.
Acute on chronic heart failure preserved ejection fraction
-severe, requiring hospitalization and close monitoring of labs and tele
-echo ok/unchanged
-continue Lasix 40 mg IV twice daily -> aiming for 235 lbs. or so
-will likely need 40mg daily at home (previously on )
-no SGLT2i yet given WANDA
WANDA
-improved
-hold losartan
Hypertension
-holding losartan due to WANDA
PE and CVA
Hyperlipidemia: continue simvastatin
Subjective: bilateral calf/ankle pain. Sharp and electric
Laboratory Data
08/23/23 08/27/23 08/28/23
16:59 20:29 20:47
Hgb
Creatinine 1.1 H 1.4 H 1.9 H
08/29/23 08/30/23 08/30/23
06:10 07:54 07:54
Hgb 13.7
Creatinine 1.6 H 1.1 H
08/31/23
06:51
Hgb
Creatinine 1.2 H
Selected Entries
08/27/23
20:12 08/31/23
06:00
Actual Weight 252 lb 6.868 oz 241 lb 4 oz
Generic Name Dose Route Start Last Admin
Trade Name Freq PRN Reason Stop Dose Admin
Rivaroxaban 20 mg 08/29/23 08:00
Rivaroxaban 20 Mg Tablet PO 04/14/24 07:59
DAILY ARIA
Atorvastatin Calcium 10 mg 08/29/23 18:00
Atorvastatin (Lipitor) 10 Mg Tablet PO 09/26/23 17:59
QPM ARIA
Furosemide 40 mg 08/30/23 08:00
Furosemide 40 Mg (10 Mg/Ml) 4 Ml Vial IV 09/27/23 07:59
BID AT 0800,1600 ARIA
Physical Exam
Vital Signs/Labs
Vital Signs
Temp Pulse Resp BP Pulse Ox
36.6 C 83 16 120/70 96
08/31/23 03:30 08/31/23 07:24 08/31/23 07:24 08/31/23 03:30 08/31/23 07:24
08/30/23 08/31/23 09/01/23
06:59 06:59 06:59
Actual Weight 244 lb 2 oz 241 lb 4 oz
08/30/23 07:54
08/31/23 06:51
Magnesium 2.3 mg/dl (1.6-2.3) 08/30/23 07:54
Triglycerides 84 mg/dl (10-149) 08/29/23 06:10
LDL Cholesterol, Calc 57 mg/dl 08/29/23 06:10
VLDL Cholesterol, Calc 16 mg/dl (0-30) 08/29/23 06:10
HDL Cholesterol 61 mg/dl 08/29/23 06:10
08/28/23
20:47
Vgc-F-Napuefclvso Pept 200
Physical Exam
Constitutional: No acute distress
EENT: Anicteric
Cardiovascular: Rhythm & rate is regular, Systolic murmur absent, Diastolic murmur absent and Pedal edema present
Respiratory: Respiratory effort normal and Rhonchi Absent
GI: Soft, Distention absent and Non tender
Neuro/Psych: Alert
Other: Skin (pink/painting supervisor calf ankle)
Data Reviewed
-
Date of Service: August 31, 2023
--- NOTE | 2023-08-31 09:28 | PHA.VAN.FU ---
Vancomycin Assessment / Plan
- Assessment
Renal Function: Stable
In the past 24 hrs, patient has been: Afebrile
- Assessment - Therapeutic Drug Monitoring
Random Level: 15.9 - drawn ~18H after previous dose of 1250mg
- Dosing Plan
Dosing by Level: Re-dose today (Vanc 1000mg)
Dosing Comments: reducing dose slightly with accumulation
predicts trough ~12.7 with linear PK
- Monitoring Plan
Random Level: 08/31 599
- Follow Up
Pharmacy will continue to follow.
Vancomycin Follow UP
- -
Patient Age: 83
Patient Sex: Female
Vancomycin Day #: 3
Indication: Skin And Soft Tissue
Requesting Provider: Cornelio ANSARI
Pertinent Antimicrobial Allergies:
Penicillin-Rash in childhood but has tolerated multiple courses of cefazolin. Last one November 2021
Height / Weight:
Height 5 ft 7 in
Actual Weight 109.429 kg
Pertinent Past Medical History: BMI ~38
- Vital Signs / Lab Results
Temp Pulse Resp BP Pulse Ox
97.9 F 79 18 177/84 94
08/31/23 07:45 08/31/23 07:45 08/31/23 07:45 08/31/23 07:45 08/31/23 07:45
Lab Results - Hematology
08/28/23 08/29/23 08/30/23
20:47 06:11 07:54
WBC 8.8 6.9 5.9
Lab Results - Chemistry
08/28/23 08/29/23 08/30/23
20:47 06:10 07:54
BUN 35 H 30 H 25 H
Creatinine 1.9 H 1.6 H 1.1 H
Estimated Creat Clear 33 49
Albumin 4.2 3.2 L
08/31/23
06:51
BUN 23 H
Creatinine 1.2 H
Estimated Creat Clear 44
Albumin
Microbiology Results
08/29/23 02:15 MRSA Screen - Final
Nose No Methicillin Resistant Staphylococcus aureus isolated.
Therapeutic Drug Monitoring
Random Vancomycin 15.9 ug/ml 08/31/23 06:51
[2023-08-31] MEDS: DESENEX/MITRAZOL/ZEASORB 1 APPLIC TOPICAL ×2 (09:34→21:22)
[2023-08-31] MEDS: XARELTO 20 MG PO (09:35)
[2023-08-31] MEDS: LASIX 40 MG IV ×2 (09:36→16:32)
[2023-08-31] MEDS: MIRALAX 17 GRAMS PO (11:41)
[2023-08-31] MEDS: VANCOCIN 200 IV (11:41)
--- NOTE | 2023-08-31 16:19 | W.PN.HOSP.TC ---
Today's Communication/Plan
-
IV AB
Diuresis
Assessment / Plan
Assessment / Plan
83-year-old female with bilateral respiratory she has sleep apnea noncompliant/intolerant with CPAP.
CVS: S1-S2 normal, Sm aortic area
Chest: CTA B/L
Abdomen: Soft, NT / Bowel sounds present
Extremities: B/L LE edema much better!, small ulcer on the dorsum of the right leg
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
# Lower extremity cellulitis secondary to worsening edema
Edema much better
Chronic venous stasis
IV antibiotics
Can consider Doxy for discharge
# CHF-likely has acute on chronic heart failure with preserved ejection fraction
Likely has a competent of right heart failure also
Continue diuresis
Cardiology following.
Echo 08/30/2023-normal biventricular size and systolic function. Ejection fraction 55 to 60%. Mild . Trace AI.
# Acute kidney injury
Unclear if cardiorenal-likely
Losartan on hold
Continue Lasix
Creatinine coming down with diuresis
Surprisingly echo looks normal!
# History of non-STEMI
# Elevated AST likely secondary to fluid overload
# Hypertension-hold losartan

# History of non-STEMI
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
# Aortic stenosis
# History of CVA
# Sleep apnea-CPAP intolerant
# COPD-on Advair and DuoNeb-continue
# Asthma
# Restless leg syndrome-on Requip
# Neuropathy NOS-on gabapentin
# Hyperlipidemia-on statin
# Obesity
# History of melanoma
# Arthritis/spinal stenosis
# DVT prophylaxis-on Xarelto
# Full code
Discussed with nursing
D/W Cards
Called [facility] [phone]- at the number pt gave me , seems to be a wrong number
Also called [phone] listed. yesterday and today. Went to message
Anticipated Discharge: 24 - 48 hours
Subjective/Interval History
-
Date of Service: August 31, 2023
Objective Data
-
Labs:
Laboratory Results
08/31/23
06:51
Sodium 138
Potassium 3.9
Chloride 104
Carbon Dioxide 30
BUN 23 H
Creatinine 1.2 H
Glucose 99
Calcium 9.1
Vital Signs:
Vital Signs
Temp Pulse Resp BP Pulse Ox
97.7 F 78 20 145/78 98
08/31/23 15:44 08/31/23 15:44 08/31/23 15:44 08/31/23 15:44 08/31/23 15:44
I&O
08/30/23 08/31/23 09/01/23
06:59 06:59 06:59
Intake Total 760 / 760 780 / 780
Output Total 2725 / 2725 2650 / 2650
Balance -1964 / -1964 -1869 / -1869
[2023-08-31] MEDS: LIPITOR 10 MG PO (16:31)
[2023-08-31] MEDS: REQUIP 1 MG PO (21:17)
[2023-08-31] MEDS: ROXICODONE 5 MG PO (22:02)
[2023-09-01 03:00] VITALS: BP 168/83
[2023-09-01 05:09] VITALS: BMI 37.5
[2023-09-01] MEDS: NEURONTIN 300 MG PO ×3 (06:01→21:02)
[2023-09-01] MEDS: ADVAIR HFA 230/21 MCG INHALER 2 PUFF INH ×2 (07:19→19:44)
[2023-09-01 07:50] LABS: Vancomycin Random 16.3 ug/ml
[2023-09-01 07:55] VITALS: BP 144/82
[2023-09-01 07:58] LABS: Blood Urea Nitrogen 23 mg/dl (7-17); Calcium 9.5 mg/dl (8.4-10.2); Carbon Dioxide 33 mmol/L (22-30); Chloride 99 mmol/L (98-107); Estimated Creatinine Clearance 48 ml/min; Glucose 105 mg/dl (70-99); Potassium 3.7 mmol/L (3.5-5.1); Sodium 137 mmol/L (135-145); eGFR 49.55
--- NOTE | 2023-09-01 08:00 | W.PN.HOSP.TC ---
Today's Communication/Plan
-
Continue IV Lasix.
Assessment / Plan
Assessment / Plan
83-year-old female with bilateral respiratory she has sleep apnea noncompliant/intolerant with CPAP.
CVS: S1-S2 normal, Sm aortic area
Chest: CTA B/L
Abdomen: Soft, NT / Bowel sounds present
Extremities: B/L LE edema much better!, small ulcer on the dorsum of the right leg
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
A/P:
# Lower extremity cellulitis secondary to worsening edema
Edema much better
Chronic venous stasis
IV antibiotics
Can consider Doxy for discharge
# CHF-likely has acute on chronic heart failure with preserved ejection fraction
Likely has a competent of right heart failure also
Continue diuresis, IV Lasix 40 mg twice a day
Cardiology following.
Echo 08/30/2023-normal biventricular size and systolic function. Ejection fraction 55 to 60%. Mild . Trace AI.
# Acute kidney injury
Unclear if cardiorenal-likely
Creatinine 1.1 today
Losartan on hold
Continue IV Lasix 40 mg twice a day
Creatinine coming down with diuresis
Surprisingly echo looks normal!
# History of non-STEMI
# Elevated AST likely secondary to fluid overload
# Hypertension-hold losartan

# History of non-STEMI
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
# Aortic stenosis
# History of CVA
# Sleep apnea-CPAP intolerant
# COPD-on Advair and DuoNeb-continue
# Asthma
# Restless leg syndrome-on Requip
# Neuropathy NOS-on gabapentin
# Hyperlipidemia-on statin
# Obesity
# History of melanoma
# Arthritis/spinal stenosis
# DVT prophylaxis-on Xarelto
# Full code
Anticipated Discharge: 24 - 48 hours
Subjective/Interval History
-
Date of Service: September 01, 2023
Patient with shortness of breath and less peripheral edema but still volume overload. No chest pain. Afebrile
Objective Data
-
Labs:
Laboratory Results
09/01/23
07:15
Sodium 137
Potassium 3.7
Chloride 99
Carbon Dioxide 33 H
BUN 23 H
Creatinine 1.1 H
Glucose 105 H
Calcium 9.5
Vital Signs:
Vital Signs
Temp Pulse Resp BP Pulse Ox
97.8 F 75 16 168/83 95
09/01/23 03:00 09/01/23 07:23 09/01/23 07:23 09/01/23 03:00 09/01/23 07:23
I&O
08/31/23 09/01/23 09/02/23
06:59 06:59 06:59
Intake Total 780 / 780 1020 / 1020
Output Total 2650 / 2650 1300 / 1300
Balance -1870 / -1870 -280 / -280
--- NOTE | 2023-09-01 09:21 | PHA.VAN.FU ---
Vancomycin Assessment / Plan
- Assessment
Renal Function: Stable
WBC's are: WNL
In the past 24 hrs, patient has been: Afebrile
- Assessment - Therapeutic Drug Monitoring
Random Level: 16. 3 - drawn ~19.5H after previous dose of 1000mg
- Dosing Plan
Dosing by Level: Re-dose today (Vanc 750mg)
Dosing Comments: reducing dose further but patient may require prolonged dosing interval
- Monitoring Plan
Random Level: 09/01 06
- Follow Up
Pharmacy will continue to follow.
Vancomycin Follow UP
- -
Patient Age: 83
Patient Sex: Female
Vancomycin Day #: 4
Indication: Skin And Soft Tissue
Requesting Provider: Cornelio ANSARI
Pertinent Antimicrobial Allergies:
Penicillin-Rash; tolerated cefazolin
Height / Weight:
Height 5 ft 7 in
Actual Weight 108.635 kg
Pertinent Past Medical History: BMI ~38
- Vital Signs / Lab Results
Temp Pulse Resp BP Pulse Ox
98.2 F 80 18 144/82 93
09/01/23 07:55 09/01/23 07:55 09/01/23 07:55 09/01/23 07:55 09/01/23 07:55
Lab Results - Hematology
08/30/23
07:54
WBC 5.9
Lab Results - Chemistry
08/30/23 08/31/23 09/01/23
07:54 06:51 07:15
BUN 25 H 23 H 23 H
Creatinine 1.1 H 1.2 H 1.1 H
Estimated Creat Clear 49 44 48
Microbiology Results
08/29/23 02:15 MRSA Screen - Final
Nose No Methicillin Resistant Staphylococcus aureus isolated.
Therapeutic Drug Monitoring
Random Vancomycin 16.3 ug/ml 09/01/23 07:15
[2023-09-01] MEDS: LASIX 40 MG IV ×2 (10:00→16:13)
[2023-09-01] MEDS: XARELTO 20 MG PO (10:01)
[2023-09-01] MEDS: DESENEX/MITRAZOL/ZEASORB 1 APPLIC TOPICAL ×2 (10:13→21:04)
[2023-09-01] MEDS: VANCOCIN 150 IV (10:26)
--- NOTE | 2023-09-01 10:27 | CM ---
Addendum entered by Cheryl Ferguson 09/01/23 11:38:
CM discussed cost of medications with patient, patient reports she is able to afford either medication and whichever medication the Doctor recommends she will take. CM provided information for [facility] [employer] [facility], [facility], [facility], and [facility]. CM will continue to follow for discharge planning needs.
Plan; [facility] with [facility] when stable.
Original Note:
C< received consult for pricing of medications: CÉSAR spoke with [employer] presction coverage: Farxiga 10 mg 30 day supply: approved through [employer], copay $114.66; Jardiance 10mg 30 day supply: approved through [employer], copay $120.34
--- NOTE | 2023-09-01 11:24 | W.PN.CD ---
Today's Communication / Plan
-
continue IV lasix
case mgmt consult for SGT2i coverage
Impression / Plan
-
83-year-old female with past medical history of PE, CVA, hypertension, GERD, restless leg syndrome and heart failure preserved ejection fraction who is here today with worsening lower extremity edema and consistent with an acute on chronic heart
failure preserved ejection fraction exacerbation.
Acute on chronic heart failure preserved ejection fraction
-severe, requiring hospitalization and close monitoring of labs and tele
-echo stable EF 60-65%, mild aortic stenosis
-continue Lasix 40 mg IV twice daily -> aiming for 235 lbs. or so
-will likely need 40mg daily at home (previously on //)
-case mgmt consult for SGLT2i
WANDA
-improved
-hold losartan
Hypertension
-holding losartan due to WANDA
PE and CVA
Hyperlipidemia: continue simvastatin
Subjective: bilateral calf/ankle pain. Sharp and electric
Physical Exam
Vital Signs/Labs
Vital Signs
Temp Pulse Resp BP Pulse Ox
98.2 F 80 18 144/82 93
09/01/23 07:55 09/01/23 10:00 09/01/23 07:55 09/01/23 10:00 09/01/23 07:55
08/31/23 09/01/23 09/02/23
06:59 06:59 06:59
Actual Weight 109.429 kg 108.635 kg
08/30/23 07:54
09/01/23 07:15
Magnesium 2.3 mg/dl (1.6-2.3) 08/30/23 07:54
Triglycerides 84 mg/dl (10-149) 08/29/23 06:10
LDL Cholesterol, Calc 57 mg/dl 08/29/23 06:10
VLDL Cholesterol, Calc 16 mg/dl (0-30) 08/29/23 06:10
HDL Cholesterol 61 mg/dl 08/29/23 06:10
08/28/23
20:47
Wep-T-Azqvxxxjqgw Pept 200
Physical Exam
Constitutional: No acute distress and Comfortable
EENT: Moist mucous membranes
Cardiovascular: Rhythm & rate is regular, Pedal edema present, JVD present and Systolic murmur present
Respiratory: Respiratory effort normal, Lungs clear to auscul. and Wheeze Absent
GI: Soft, Distention absent and Flat
Neuro/Psych: AO x 3
Data Reviewed
-
Date of Service: September 01, 2023
EKG: Other (Tele: SR 60s)
Labs: Labs Reviewed by me
[2023-09-01 11:55] VITALS: BP 133/73
[2023-09-01 12:43] VITALS: BP 129/99; PULSE 80
[2023-09-01 15:55] VITALS: BP 137/68
[2023-09-01] MEDS: LIPITOR 10 MG PO (16:14)
[2023-09-01] MEDS: REQUIP 1 MG PO (21:02)
[2023-09-01 23:44] VITALS: BP 144/81
[2023-09-02] MEDS: ROXICODONE 5 MG PO (02:51)
[2023-09-02 06:00] VITALS: BMI 37.5
[2023-09-02] MEDS: NEURONTIN 300 MG PO ×3 (06:14→21:07)
[2023-09-02 07:00] VITALS: BP 183/82
[2023-09-02] MEDS: ADVAIR HFA 230/21 MCG INHALER 2 PUFF INH ×2 (07:34→19:56)
[2023-09-02 07:50] LABS: Vancomycin Random 15.1 ug/ml
--- NOTE | 2023-09-02 08:00 | W.PN.HOSP.TC ---
Today's Communication/Plan
-
Continue IV antibiotics. Changing to oral diuretics.
Assessment / Plan
Assessment / Plan
83-year-old female with bilateral respiratory she has sleep apnea noncompliant/intolerant with CPAP.
CVS: S1-S2 normal, Sm aortic area
Chest: CTA B/L
Abdomen: Soft, NT / Bowel sounds present
Extremities: B/L LE edema much better!, small ulcer on the dorsum of the right leg
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
A/P:
# Lower extremity cellulitis secondary to worsening edema
Edema much better
Chronic venous stasis
IV antibiotics and IV cefazolin to vancomycin and will switch to oral tomorrow
# CHF-likely has acute on chronic heart failure with preserved ejection fraction
Likely has a competent of right heart failure also
Continue diuresis, IV Lasix 40 mg twice a day and switch to oral diuretics today.
Discussed with cardiology today on 09/01
Cardiology following.
Echo 08/30/2023-normal biventricular size and systolic function. Ejection fraction 55 to 60%. Mild . Trace AI.
# Acute kidney injury
Unclear if cardiorenal-likely
Creatinine 1.1 today
Losartan on hold--> will discuss tomorrow with cardio if restart upon discharge
# History of non-STEMI
# Elevated AST likely secondary to fluid overload
# Hypertension-one of the readings elevated but monitor throughout the day and make adjustments as necessary. On amlodipine. Holding losartan. On oral furosemide

# History of non-STEMI
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
# Aortic stenosis
# History of CVA
# Sleep apnea-CPAP intolerant
# COPD-on Advair and DuoNeb-continue
# Asthma
# Restless leg syndrome-on Requip
# Neuropathy NOS-on gabapentin
# Hyperlipidemia-on statin
# Obesity
# History of melanoma
# Arthritis/spinal stenosis
# DVT prophylaxis-on Xarelto
# Full code
Anticipated Discharge: Within 24 hours
Subjective/Interval History
-
Date of Service: September 02, 2023
Patient is short of breath overall. She has complaints on her legs with discomfort and redness although overall erythema receding. Afebrile
Objective Data
-
Labs:
Laboratory Results
09/02/23
07:10
Sodium Pending
Potassium Pending
Chloride Pending
Carbon Dioxide Pending
BUN Pending
Creatinine Pending
Glucose Pending
Calcium Pending
Vital Signs:
Vital Signs
Temp Pulse Resp BP Pulse Ox
98.0 F 86 16 183/82 96
09/02/23 07:00 09/02/23 07:35 09/02/23 07:35 09/02/23 07:00 09/02/23 07:35
I&O
09/01/23 09/02/23 09/03/23
06:59 06:59 06:59
Intake Total 1020 / 1020 420 / 420 240 / 240
Output Total 1300 / 1300 1200 / 1200 300 / 300
Balance -280 / -280 -780 / -780 -60 / -60
[2023-09-02 08:04] LABS: Blood Urea Nitrogen 27 mg/dl (7-17); Calcium 9.7 mg/dl (8.4-10.2); Carbon Dioxide 33 mmol/L (22-30); Chloride 98 mmol/L (98-107); Estimated Creatinine Clearance 48 ml/min; Glucose 103 mg/dl (70-99); Potassium 3.8 mmol/L (3.5-5.1); Sodium 138 mmol/L (135-145); eGFR 49.55
--- NOTE | 2023-09-02 08:28 | PHA.VAN.FU ---
Vancomycin Assessment / Plan
- Assessment
Renal Function: Stable
WBC's are: WNL
In the past 24 hrs, patient has been: Afebrile
- Assessment - Therapeutic Drug Monitoring
Random Level: 15.1 - drawn ~20.5H after previous dose of 500mg
- Dosing Plan
Dosing by Level: Re-dose today (Vanc 1000mg)
Dosing Comments: anticipate patient requires longer dosing interval
- Monitoring Plan
Random Level: 09/02 06
Monitoring Comments: will attempt to obtain 2 levels without dosing to calculate half-life
- Follow Up
Pharmacy will continue to follow.
Vancomycin Follow UP
- -
Patient Age: 83
Patient Sex: Female
Vancomycin Day #: 5
Indication: Skin And Soft Tissue
Requesting Provider: Cornelio ANSARI
Pertinent Antimicrobial Allergies:
Penicillin-Rash; tolerated cefazolin
Height / Weight:
Height 5 ft 7 in
Actual Weight 108.522 kg
Pertinent Past Medical History: BMI ~38
- Vital Signs / Lab Results
Temp Pulse Resp BP Pulse Ox
98.0 F 86 16 183/82 96
09/02/23 07:00 09/02/23 07:35 09/02/23 07:35 09/02/23 07:00 09/02/23 07:35
Lab Results - Hematology
08/30/23
07:54
WBC 5.9
Lab Results - Chemistry
08/30/23 08/31/23 09/01/23
07:54 06:51 07:15
BUN 25 H 23 H 23 H
Creatinine 1.1 H 1.2 H 1.1 H
Estimated Creat Clear 49 44 48
09/02/23
07:10
BUN 27 H
Creatinine 1.1 H
Estimated Creat Clear 48
Therapeutic Drug Monitoring
Random Vancomycin 15.1 ug/ml 09/02/23 07:10
--- NOTE | 2023-09-02 09:35 | W.PN.CD ---
Today's Communication / Plan
-
transition to lasix 40mg PO daily
start farxiga 10mg daily
start amlodipine 5mg daily
BMP in AM
Impression / Plan
-
83-year-old female with past medical history of PE, CVA, hypertension, GERD, restless leg syndrome and heart failure preserved ejection fraction who is here today with worsening lower extremity edema and consistent with an acute on chronic heart
failure preserved ejection fraction exacerbation.
Acute on chronic heart failure preserved ejection fraction
-improved s/p IV lasix
-echo stable EF 60-65%, mild aortic stenosis
-transition to lasix 40mg PO daily
-start farxiga 10mg daily
WANDA
-improved
-stopped losartan
Hypertension
-stopped losartan due to WANDA
-start amlodipine 5mg daily
PE and CVA
-on xarelto
Hyperlipidemia: continue simvastatin
Subjective:
SOB and edema better.
Physical Exam
Vital Signs/Labs
Vital Signs
Temp Pulse Resp BP Pulse Ox
98.0 F 86 16 183/82 96
09/02/23 07:00 09/02/23 07:35 09/02/23 07:35 09/02/23 07:00 09/02/23 07:35
09/01/23 09/02/23 09/03/23
06:59 06:59 06:59
Actual Weight 108.635 kg 108.522 kg
08/30/23 07:54
09/02/23 07:10
Magnesium 2.3 mg/dl (1.6-2.3) 08/30/23 07:54
Triglycerides 84 mg/dl (10-149) 08/29/23 06:10
LDL Cholesterol, Calc 57 mg/dl 08/29/23 06:10
VLDL Cholesterol, Calc 16 mg/dl (0-30) 08/29/23 06:10
HDL Cholesterol 61 mg/dl 08/29/23 06:10
08/28/23
20:47
Hqa-T-Vewkncxihze Pept 200
Physical Exam
Constitutional: No acute distress and Comfortable
EENT: Moist mucous membranes
Cardiovascular: Rhythm & rate is regular, JVD pressure is normal, Systolic murmur absent and Pedal edema present
Respiratory: Respiratory effort normal and Lungs clear to auscul.
GI: Soft and Distention absent
Neuro/Psych: AO x 3
Data Reviewed
-
Date of Service: September 02, 2023
Labs: Labs Reviewed by me
[2023-09-02] MEDS: XARELTO 20 MG PO (09:45)
[2023-09-02] MEDS: FARXIGA 10 MG PO (09:45)
[2023-09-02] MEDS: NORVASC 5 MG PO (09:45)
[2023-09-02] MEDS: DESENEX/MITRAZOL/ZEASORB 1 APPLIC TOPICAL ×2 (09:46→21:08)
[2023-09-02] MEDS: LASIX 40 MG PO (09:46)
[2023-09-02] MEDS: VANCOCIN 200 IV (09:56)
[2023-09-02] MEDS: LASIX IV (09:57)
[2023-09-02] MEDS: ANCEF 10 IV ×2 (12:08→16:14)
[2023-09-02 14:35] VITALS: BP 149/76; PULSE 78; O2SAT 97
[2023-09-02 15:00] VITALS: BP 157/80
--- NOTE | 2023-09-02 15:53 | PTOTSP ---
PATIENT ABLE TO TOLERATE INCREASED MOBILITY THIS SESSION AND IS INDEPENDENT WITH TRANSFERS AND AMBULATION AT THIS TIME. ENCOURAGED PATIENT TO AMBULATE IN [facility] WITH [facility]. PATIENT AGREEABLE AND RN AWARE. WILL DISCHARGE FROM P.T. SERVICES AT
THIS TIME.
[2023-09-02] MEDS: LIPITOR 10 MG PO (16:14)
[2023-09-02] MEDS: REQUIP 1 MG PO (21:07)
[2023-09-03 00:01] VITALS: BP 106/45
[2023-09-03] MEDS: ANCEF 10 IV ×2 (02:13→10:20)
[2023-09-03 05:19] VITALS: BMI 37.6
[2023-09-03] MEDS: NEURONTIN 300 MG PO ×2 (05:26→13:09)
[2023-09-03 07:35] VITALS: BP 152/86
[2023-09-03 07:37] LABS: Vancomycin Random 16.3 ug/ml
[2023-09-03 07:39] LABS: Blood Urea Nitrogen 24 mg/dl (7-17); Calcium 9.6 mg/dl (8.4-10.2); Carbon Dioxide 33 mmol/L (22-30); Chloride 98 mmol/L (98-107); Estimated Creatinine Clearance 48 ml/min; Glucose 105 mg/dl (70-99); Potassium 3.5 mmol/L (3.5-5.1); Sodium 138 mmol/L (135-145); eGFR 49.55
[2023-09-03] MEDS: ADVAIR HFA 230/21 MCG INHALER 2 PUFF INH (07:47)
--- NOTE | 2023-09-03 08:46 | W.PN.HOSP.TC ---
Today's Communication/Plan
-
Discharge planning today.
Assessment / Plan
Assessment / Plan
83-year-old female with bilateral respiratory she has sleep apnea noncompliant/intolerant with CPAP.
CVS: S1-S2 normal, Sm aortic area
Chest: CTA B/L
Abdomen: Soft, NT / Bowel sounds present
Extremities: B/L LE edema much better!, small ulcer on the dorsum of the right leg
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
A/P:
# Lower extremity cellulitis secondary to worsening edema
Edema much better
Chronic venous stasis
IV antibiotics and IV cefazolin to vancomycin and will switch to oral today
# CHF-likely has acute on chronic heart failure with preserved ejection fraction
Likely has a competent of right heart failure also
Continue diuresis, IV Lasix 40 mg twice a day and switch to oral diuretics.
Discussed with cardiology today on 09/02
Cardiology following.
Echo 08/30/2023-normal biventricular size and systolic function. Ejection fraction 55 to 60%. Mild . Trace AI.
# Acute kidney injury
Unclear if cardiorenal-likely
Creatinine 1.1 today
Losartan on hold--> will discuss tomorrow with cardio if restart upon discharge
# History of non-STEMI
# Elevated AST likely secondary to fluid overload
# Hypertension-one of the readings elevated but monitor throughout the day and make adjustments as necessary. On amlodipine. Holding losartan. On oral furosemide

# History of non-STEMI
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
# Aortic stenosis
# History of CVA
# Sleep apnea-CPAP intolerant
# COPD-on Advair and DuoNeb-continue
# Asthma
# Restless leg syndrome-on Requip
# Neuropathy NOS-on gabapentin
# Hyperlipidemia-on statin
# Obesity
# History of melanoma
# Arthritis/spinal stenosis
# DVT prophylaxis-on Xarelto
# Full code
Anticipated Discharge: Today
Subjective/Interval History
-
Date of Service: September 03, 2023
Patient feels much better today. No leg pain. Afebrile
Objective Data
-
Labs:
Laboratory Results
09/03/23
06:44
Sodium 138
Potassium 3.5
Chloride 98
Carbon Dioxide 33 H
BUN 24 H
Creatinine 1.1 H
Glucose 105 H
Calcium 9.6
Vital Signs:
Vital Signs
Temp Pulse Resp BP Pulse Ox
98.0 F 77 16 152/86 94
09/03/23 07:35 09/03/23 08:03 09/03/23 08:03 09/03/23 07:35 09/03/23 08:03
I&O
09/02/23 09/03/23 09/04/23
06:59 06:59 06:59
Intake Total 420 / 420 960 / 960
Output Total 1200 / 1200 1700 / 1700
Balance -780 / -780 -740 / -740
--- NOTE | 2023-09-03 08:51 | PHA.VAN.FU ---
Vancomycin Assessment / Plan
- Assessment
Renal Function: Stable
WBC's are: WNL
In the past 24 hrs, patient has been: Afebrile
Concomitant Antimicrobials: cefazolin
- Assessment - Therapeutic Drug Monitoring
Random Level: 16.3 - drawn ~20.5H after previous dose of 1000mg
- Dosing Plan
Dosing by Level: Hold off on dosing today
- Monitoring Plan
Random Level: 09/03 06
Monitoring Comments: consider calculating half-life to see if prolonged interval needed
- Follow Up
Pharmacy will continue to follow.
Vancomycin Follow UP
- -
Patient Age: 83
Patient Sex: Female
Vancomycin Day #: 6
Indication: Skin And Soft Tissue
Requesting Provider: Cornelio ANSARI
Pertinent Antimicrobial Allergies:
Penicillin-Rash; tolerated cefazolin
Height / Weight:
Height 5 ft 7 in
Actual Weight 108.891 kg
Pertinent Past Medical History: BMI ~38
- Vital Signs / Lab Results
Temp Pulse Resp BP Pulse Ox
98.0 F 77 16 152/86 94
09/03/23 07:35 09/03/23 08:03 09/03/23 08:03 09/03/23 07:35 09/03/23 08:03
Lab Results - Chemistry
09/01/23 09/02/23 09/03/23
07:15 07:10 06:44
BUN 23 H 27 H 24 H
Creatinine 1.1 H 1.1 H 1.1 H
Estimated Creat Clear 48 48 48
Therapeutic Drug Monitoring
Random Vancomycin 16.3 ug/ml 09/03/23 06:44
[2023-09-03] MEDS: DESENEX/MITRAZOL/ZEASORB 1 APPLIC TOPICAL (08:55)
[2023-09-03] MEDS: FARXIGA 10 MG PO (08:57)
[2023-09-03] MEDS: XARELTO 20 MG PO (08:57)
[2023-09-03] MEDS: NORVASC 5 MG PO (08:57)
[2023-09-03] MEDS: LASIX 40 MG PO (08:59)
--- NOTE | 2023-09-03 10:13 | W.PN.CD ---
Today's Communication / Plan
-
Discharge planning. We will arrange for outpatient follow up with us.
Continue lasix 40mg daily, farxiga 10mg daily, amlodipine 5mg daily.
Losartan stopped this admission for WANDA.
Impression / Plan
-
83-year-old female with past medical history of PE, CVA, hypertension, GERD, restless leg syndrome and heart failure preserved ejection fraction who is here today with worsening lower extremity edema and consistent with an acute on chronic heart
failure preserved ejection fraction exacerbation.
Acute on chronic heart failure preserved ejection fraction
-improved s/p IV lasix
-echo stable EF 60-65%, mild aortic stenosis
-continue lasix 40mg PO daily
-continue farxiga 10mg daily
WANDA
-improved
-stopped losartan
Hypertension
-stopped losartan due to WANDA
-continue amlodipine 5mg daily
PE and CVA
-on xarelto
Hyperlipidemia: continue simvastatin
Subjective:
SOB and edema are better.
Physical Exam
Vital Signs/Labs
Vital Signs
Temp Pulse Resp BP Pulse Ox
98.0 F 74 16 152/86 94
09/03/23 07:35 09/03/23 08:59 09/03/23 08:03 09/03/23 08:59 09/03/23 08:03
09/02/23 09/03/23 09/04/23
06:59 06:59 06:59
Actual Weight 108.522 kg 108.891 kg
08/30/23 07:54
09/03/23 06:44
Magnesium 2.3 mg/dl (1.6-2.3) 08/30/23 07:54
Triglycerides 84 mg/dl (10-149) 08/29/23 06:10
LDL Cholesterol, Calc 57 mg/dl 08/29/23 06:10
VLDL Cholesterol, Calc 16 mg/dl (0-30) 08/29/23 06:10
HDL Cholesterol 61 mg/dl 08/29/23 06:10
08/28/23
20:47
Qzk-I-Gwprppyqfmv Pept 200
Physical Exam
Constitutional: No acute distress and Comfortable
EENT: Moist mucous membranes
Cardiovascular: Rhythm & rate is regular, JVD pressure is normal, Pedal edema present and Systolic murmur present
Respiratory: Respiratory effort normal and Lungs clear to auscul.
GI: Soft and Distention absent
Neuro/Psych: AO x 3
Data Reviewed
-
Date of Service: September 03, 2023
Labs: Labs Reviewed by me
--- NOTE | 2023-09-03 11:10 | W.DCSUMMARY ---
Discharge Summary
Discharge Data
Date of Admission: 08/29/23
Date of Discharge: 09/03/23
-
Pending Results: No
Hospital Course
Patient 83 years old female history of CVA, hypertension, PE, GERD, restless leg syndrome, CHF, presented to the hospital with shortness of breath and lower extremity edema and erythema. Patient was started on IV diuretics for heart failure and IV
antibiotics for cellulitis. Cardiology consulted. She had echocardiogram on 08/29 EF of 55 to 60%, mild aortic stenosis, trace aortic regurgitation, and no significant changes from prior. She was diuresed appropriately with negative balance and
weight trended down. She had some mild renal insufficiency and cardiac medications were adjusted. Losartan was discontinued and she was started on Norvasc and she was also started on Farxiga and diuretics changed to oral. Her antibiotics were
switched to oral to complete a 5 more days course as outpatient. Patient is hemodynamically stable and afebrile and feels symptomatically much better. Cardiology cleared for discharge today. She will be discharged in stable condition today.
Discharge duration: 36 minutes
Discharge Plan
-
Patient Disposition: Home with Home Care
Discharge Diagnosis/Procedures: Acute on chronic diastolic congestive heart failure. Acute kidney injury. Cellulitis bilateral lower extremities. Chronic kidney disease stage III.
Diet: Low Cholesterol and Restrict fluids to 48 oz
Activity: As tolerated
Driving Restrictions: As prior to admission
Blood Work: Please PCP to order CBC, BMP within 1 week.
Other Services: PT and OT
Specialty Instructions: Weigh Daily- Call MD for wt gain/loss 3 lbs overnight/5 lbs in 1 week
Activity Restrictions/Additional Instructions:
Wound Care Instructions
RLE wound-clean with saline or soap and water, apply honey gel as needed for yellow/barnard fibrin cover, adaptic, cover with silicone border foam or gauze and Michell, change daily and as needed for drainage.
Miconazole powder to abdominal folds, coccyx crease, affected area twice a day.
Bilateral knee high Evan wraps as tolerated; re-wrap daily.
Elevate heels off bed with pillow/s.
Pressure redistributing chair cushion (i.e. Air chair cushion).
Follow up at wound care center call for an appointment.
Instructions: *CBC Heart Failure Instructions
Referrals:
Carola Bhatti CRNP [Specified Professional Personl] - 09/21/23 2:20 pm
Joe Henderson MD [Family Provider] - in less than 1 week
Prescriptions:
New
furosemide 40 mg Tablet
40 mg PO DAILY 30 Days Qty: 30 0RF
amlodipine 5 mg Tablet
5 mg PO DAILY 30 Days Qty: 30 0RF
dapagliflozin propanediol [Farxiga] 10 mg Tablet
10 mg PO DAILY 30 Days Qty: 30 0RF
cephalexin 250 mg capsule
250 mg PO QID 5 Days Qty: 20 0RF
doxycycline hyclate 100 mg capsule
100 mg PO BID 5 Days Qty: 10 0RF
Continued
ropinirole 1 MG tablet
1 mg PO HS
Rx Instructions:
1-3 hour before bedtime
fluticasone propionate 1 SPRAY spray,suspension
2 spray intranasal HS
gabapentin 600 mg Tablet
300 mg PO BID@0600,1200
gabapentin 600 mg Tablet
600 mg PO HS
simvastatin 10 mg Tablet
10 mg PO QPM
fluticasone propion-salmeterol [Advair HFA] 230-21 mcg/actuation Hfa Aerosol Inhaler
2 puff INHALATION BID
Xarelto 20 MG tablet
20 mg PO DAILY
Discontinued
losartan 50 MG tablet
50 mg PO DAILY 0RF
Discharge Orders:
Discharge Patient (As Directed); Ordered 09/03/23
Ordered By: Theo Bolivar
Discharge Date and Time
Discharge Date/Time: 09/03/23 13:31
--- NOTE | 2023-09-03 13:35 | PTCARENOTE ---
1230 Pt 's homes medication. Phone call pharmacy regarding patients medications from home. RN picked medications up from pharmacy and returned them to patient.
--- NOTE | 2023-09-03 13:42 | CM ---
MD entered order for discharge.
Pt requested [facility] . [facility].
Family will drive her home.
Pt agrees with dc.
PLAN Home with [facility]
== END 2023-09-03 13:31 | disposition home health service (06) | DRG 291 ==
LOC: 4 EAST ACU 01:05
PROVIDERS: Emergency Medicine; Hospitalist; Internal Medicine; Registered Nurse; ADMITTING PHYSICIAN Internal Medicine; ATTENDING PHYSICIAN Hospitalist; CONSULT PHYSICIAN Internal Medicine Cardiovascular Disease; EMERGENCY PHYSICIAN Emergency Medicine; FAMILY PHYSICIAN Internal Medicine
DX: I13.0 Hypertensive heart and chronic kidney disease with heart failure and stage 1 through stage 4 chronic kidney disease, or unspecified chronic kidney disease (principal); I50.33 Acute on chronic diastolic (congestive) heart failure; N17.9 Acute kidney failure, unspecified; L03.116 Cellulitis of left lower limb; L03.115 Cellulitis of right lower limb; G25.81 Restless legs syndrome; N18.30 Chronic kidney disease, stage 3 unspecified; E66.9 Obesity, unspecified; G47.33 Obstructive sleep apnea (adult) (pediatric); E11.22 Type 2 diabetes mellitus with diabetic chronic kidney disease; K21.9 Gastro-esophageal reflux disease without esophagitis; E78.5 Hyperlipidemia, unspecified; I35.0 Nonrheumatic aortic (valve) stenosis; E87.6 Hypokalemia; J44.9 Chronic obstructive pulmonary disease, unspecified; I87.8 Other specified disorders of veins; J45.909 Unspecified asthma, uncomplicated; E11.42 Type 2 diabetes mellitus with diabetic polyneuropathy; Z86.711 Personal history of pulmonary embolism; Z86.73 Personal history of transient ischemic attack (TIA), and cerebral infarction without residual deficits; Z83.3 Family history of diabetes mellitus; Z82.49 Family history of ischemic heart disease and other diseases of the circulatory system; Z79.51 Long term (current) use of inhaled steroids; Z68.37 Body mass index [BMI] 37.0-37.9, adult; Z79.01 Long term (current) use of anticoagulants; Z88.0 Allergy status to penicillin; Z91.199 Patient's noncompliance with other medical treatment and regimen due to unspecified reason; I25.2 Old myocardial infarction; Z85.820 Personal history of malignant melanoma of skin
CPT/HCPCS: 80048; 80053; 80061; 80202; 82248; 83735; 83880; 85025; 85027; 87070; 93306; 93970; 94640; 96374; 97116; 97162; 97166; 97530; 97535; 99284

== ENCOUNTER → 2023-10-04 11:54 | Outpatient (REF) | payer OTHER, SELFPAY | LOC: RAD 11:54 | PROVIDERS: ATTENDING PHYSICIAN Physician Assistant; FAMILY PHYSICIAN Internal Medicine | DX: M25.551 Pain in right hip (principal); M79.18 Myalgia, other site | CPT/HCPCS: 73502 ==

== ENCOUNTER 2023-12-01 21:56 | Inpatient (IN) | payer OTHER, SELFPAY ==
[2023-12-01] VITALS (10 sets, daily range): BP systolic 88–170; BP diastolic 41–106; BMI 44.6; BMI 36.4
[2023-12-01 18:27] LABS: % Basophils 0.1 % (0-2); % Eosinophils 0.2 % (0-6); % Immature Granulocytes 0.5 % (0-0.5); % Lymphocytes 6.9 % (20.5-51.1); % Monocytes 10.8 % (1.7-9.3); % Neutrophils 81.5 % (42.2-75.2); Absolute Immature Granulocytes 0.1 10^3/uL (0-0.05); Absolute Lymphocytes 0.8 10^3/uL (1.2-3.4); Absolute Monocytes 1.2 10^3/uL (0.1-0.6); Absolute Neutrophils 8.9 10^3/uL (1.4-6.5); Hematocrit 43.7 % (37.0-47.0); Hemoglobin 14.8 g/dL (12.0-16.0); Mean Corp Hgb Conc. 33.9 g/dL (33.0-37.0); Mean Corpuscular Hgb 31.9 pg (27.0-31.0); Mean Corpuscular Volume 94.2 fL (81.0-99.0); Mean Platelet Volume 9.3 fL (7.4-10.4); Nucleated Red Blood Cells % 0 %; Platelet Count 199 10^3/uL (130-400); Red Blood Cell Count 4.64 10^6/uL (4.20-5.40); Red Cell Dist. Width 14.7 % (11.5-14.5); White Blood Cell Count 10.9 10^3/uL (4.8-10.8)
[2023-12-01 18:39] LABS: Lactic Acid 2.3 mmol/L (0.7-2.0)
[2023-12-01 18:46] LABS: ALT (SGPT) 15 U/L (0-35); AST (SGOT) 28 U/L (14-36); Albumin 4.3 g/dl (3.5-5.0); Alkaline Phosphatase 124 U/L (38-126); Blood Urea Nitrogen 18 mg/dl (7-17); Calcium 9.4 mg/dl (8.4-10.2); Carbon Dioxide 29 mmol/L (22-30); Chloride 96 mmol/L (98-107); Estimated Creatinine Clearance 38 ml/min; Glucose 122 mg/dl (70-99); Potassium 3.3 mmol/L (3.5-5.1); Sodium 134 mmol/L (135-145); Total Bilirubin 1.3 mg/dl (0.2-1.3); Total Protein 7.1 g/dl (6.3-8.2); eGFR 44.64
[2023-12-01 18:47] LABS: COVID-19 Antigen Negative (Negative)
[2023-12-01 19:19] LABS: Urine Albumin Negative (Neg - Trace); Urine Bilirubin Negative (Negative); Urine Character Clear (Clear); Urine Color Yellow; Urine Glucose 3+ (Negative); Urine Ketone Negative (Negative); Urine Leukocyte Negative (Negative); Urine Nitrite Negative (Negative); Urine Occult Blood Negative (Negative); Urine Specific Gravity 1.005 (<1.030); Urine Urobilinogen Negative (Neg - 1+)
[2023-12-01] MEDS: TYLENOL 1000 MG PO (19:27)
[2023-12-01] MEDS: NSS 500 IV (19:28)
[2023-12-01 19:40] LABS: NT-proBNP 595 pg/ml
--- NOTE | 2023-12-01 21:20 | ED.GENMED ---
History of Present Illness
General
Chief Complaint: Dizziness
Source: patient
Exam Limitations: none
Time Seen by Provider: 12/01/23 19:04
Travel History
Have you had any contact with someone who has COVID-19?: No
Do you have any symptoms of coronavirus? Fever > 100 degrees, chills, cough, shortness of breath, sore throat, loss of taste or smell, muscle aches, or headache?: Yes
Symptoms:: fever
History of Present Illness
History of Present Illness:
83-year-old female on Xarelto with history of CHF presents with weakness chills fatigue and measurable fever here. She fell off of her toilet today after moving her bowels. She hit her nose. She denies a headache. She denies a cough. She denies
any shortness of breath. She notes mild nausea but no vomiting. No other complaints at this time
Past History
Past History
ED Past Medical History: CVA, GERD, HTN, Other (pulmonary embolism, neuropathy) and Other (Restless leg syndrome)
ED Past Surgical History: Orthopedic and Tonsilectomy
Social History
Tobacco: Non-smoker
Alcohol: Occasional
Drug: None
Personal:
Living: with family
Family History
Family History: Diabetes, CAD and Other (Peripheral neuropathy)
Phy Exam
Physical Exam
Physical Exam:
General: Well-appearing female no acute respiratory distress
HEENT: Normocephalic abrasion noted to the nose
Heart: Regular rate and rhythm no murmurs
Lungs: Clear subtle rales at the bases
Abdomen soft nontender nondistended no guarding or rebound
Extremities: No cyanosis
Skin erythema and warmth noted from the left jay. This spreads proximally just above the knee. There is a healing abrasion in the center of the anterior jay
Neurologic: Alert and oriented to person and place no facial asymmetry
Course
Orders/Labs/Results
Orders:
Orders
12/01/23 18:09
Electrocardiogram (*1) Urgent
Reason for Study: Vertigo / Dizzy
EKG- Treatment ONCE
12/01/23 18:21
COVID-19 Antigen Urgent
Source: Nasal Swab
Complete Blood Count/With Diff Urgent
Comprehensive Metabolic Panel Urgent
Lactic Acid Urgent
Blood Culture Q30M
MARAL Source: Blood/Venous
Specimen Description:
Comment: FROM 2 SEPARATE SITES
Blood Culture Q30M
MARAL Source: Blood/Venous
Specimen Description:
Comment: FROM 2 SEPARATE SITES
Influenza A+B Rapid Molecular Urgent
MARAL Source: Nasal Swab
Specimen Description:
12/01/23 18:42
CR Chest - 2 Views Urgent
Comment:
Reason For Exam: cough, hypoxia
12/01/23 19:13
NT-proBNP Urgent
Urinalysis Reflex To Culture Urgent
Date Specimen was Collected: 12/01/23
Time Specimen was Collected: 19:11
12/01/23 19:20
CT Head W/o Iv Contrast Urgent
Comment:
Reason For Exam: fall, head strike on xarelto
Acetaminophen [Tylenol] 1,000 mg PO NOW STA
12/01/23 19:24
0.9% Sodium Chloride 500 ml [Nss] 500 ml IV BOLUS
12/01/23 21:16
CeFAZolin 2 GRAM [Ancef] 2 grams in 10 ml IV NOW
Abnormal Lab Results
12/01/23 12/01/23
18:21 19:13
WBC 10.9 H 10^3/uL
(4.8-10.8)
MCH 31.9 H pg
(27.0-31.0)
RDW 14.7 H %
(11.5-14.5)
Abs Immat Gran (auto) 0.1 H 10^3/uL
(0-0.05)
Absolute Neuts (auto) 8.9 H 10^3/uL
(1.4-6.5)
Absolute Lymphs (auto) 0.8 L 10^3/uL
(1.2-3.4)
Absolute Monos (auto) 1.2 H 10^3/uL
(0.1-0.6)
Neutrophils % 81.5 H %
(42.2-75.2)
Lymphocytes % 6.9 L %
(20.5-51.1)
Monocytes % 10.8 H %
(1.7-9.3)
Sodium 134 L mmol/L
(135-145)
Potassium 3.3 L mmol/L
(3.5-5.1)
Chloride 96 L mmol/L
(98-107)
BUN 18 H mg/dl
(7-17)
Creatinine 1.2 H mg/dL
(0.6-1.0)
Glucose 122 H mg/dl
(70-99)
Lactic Acid 2.3 H mmol/L
(0.7-2.0)
Urine Glucose 3+ A
(Negative)
12/01/23 18:21
12/01/23 18:21
Vital Signs
Initial and Last Documented VS:
Initial Vital Signs
Temp Pulse Resp BP Pulse Ox
103.3 F H 84 18 149/106 92
12/01/23 18:04 12/01/23 18:04 12/01/23 18:04 12/01/23 18:04 12/01/23 18:04
Last Documented Vital Signs
Temp Pulse Resp BP Pulse Ox
99.9 F 79 17 88/45 92
12/01/23 21:09 12/01/23 21:06 12/01/23 21:06 12/01/23 21:06 12/01/23 21:04
MDM/Problems Addressed
Differential Diagnosis Includes:
Fever here temp 103.3. Will check for viral illness, pneumonia or UTI. Consider cellulitis given the exam.
Patient anticoagulated and struck her head. CT of head pending
Reviewed tests. COVID and flu negative. Chest x-ray shows mild pulmonary edema CT head shows no acute intracranial injury. Exam most consistent with cellulitis. She may be dealing with a component of CHF however currently she is slightly
hypotensive. Will administer fluids and Ancef. Admit to hospital. She is requiring nasal cannula oxygen.
*Critical Care Note
Total Time (30-74mins, 75-104mins- exclusive of procedures): Not Applicable
ED Attending Note
-
Portions of this chart may have been created with voice recognition software.� Occasional wrong word or��sound alike� substitutions may have occurred due to the inherent limitations of voice recognition software.
Discharge Plan
Departure
Patient Disposition: Admit
Date of Disposition: 12/01/23
Time of Disposition: 21:23
Admit to: IMU
Presentation/result/management discussed w/ accepting MD/DO: Hospitalist
Discharge Problem:
Cellulitis
Prescriptions:
No Action
ropinirole 1 MG tablet
1 mg PO HS
Rx Instructions:
1-3 hour before bedtime
gabapentin 600 mg Tablet
600 mg PO TID
simvastatin 10 mg Tablet
10 mg PO QPM
fluticasone propion-salmeterol [Advair HFA] 230-21 mcg/actuation Hfa Aerosol Inhaler
2 puff INHALATION R BID
Xarelto 20 MG tablet
20 mg PO HS
amlodipine 5 mg Tablet
5 mg PO DAILY 30 Days Qty: 30 0RF
dapagliflozin propanediol [Farxiga] 10 mg Tablet
10 mg PO DAILY 30 Days Qty: 30 0RF
losartan 50 mg tablet
50 mg PO DAILY
trazodone 50 mg tablet
50 mg PO HS PRN (Reason: sleep)
Referrals:
Joe Henderson MD [Family Provider] -
Interventions
Interventions:
*Risk Screen - Suicide Last Done: 12/01/23 18:10
*General Assessment Last Done: 12/01/23 18:10
*Neglect/Abuse Screening Last Done: 12/01/23 18:10
*ED COVID-19 Vaccine History Last Done: 12/01/23 18:10
ED- Neurological Assessment Last Done: 12/01/23 18:40
ED- Cardiac Assessment Last Done: 12/01/23 18:40
Discharge Date and Time
Print Language: KYRGYZ
[2023-12-01] MEDS: ANCEF 10 IV (21:36)
--- NOTE | 2023-12-01 21:48 | HPS.HSE ---
Family Physician
-
Family Physician: Joe Henderson
Chief Complaint
-
fall
History of Present Illness
83-year-old female past medical history of HFpEF, coronary disease, hypertension, bilateral pulmonary embolism on Xarelto, aortic stenosis, CVA, sleep apnea, COPD, asthma, restless leg syndrome, neuropathy, hyperlipidemia, obesity, melanoma,
arthritis, spinal stenosis, presenting with weakness, chills, fatigue and fever here. She states that she was sitting on the toilet and after she had a bowel movement she was so weak that she fell and hit the bridge of her nose. She denies passing
out or dizziness. She denies any headache or pain in the area of the nose.
Patient states that 3 to 4 days ago her dog climbed up on her and scratched her left lower extremity. Since then her left lower extremity has been red, swollen and painful with palpation.
She denies any chest pain or shortness of breath and any new cough that is worse than baseline. She has lost 12 pounds recently due to being on diuretics.
She denies any abdominal pain, nausea or vomiting or diarrhea although she has been feeling little sick.
She does drink wine sometimes. Denies smoking.
Medical History
Past Medical History
Past Medical History: Reports Other (HFpEF, coronary disease, hypertension, bilateral pulmonary embolism on Xarelto, aortic stenosis, CVA, sleep apnea, COPD, asthma, restless leg syndrome, neuropathy, hyperlipidemia, obesity, melanoma, arthritis,
spinal stenosis,)
Past Surgical History: Reports Other (Orthopedic and Tonsilectomy)
Social History
Tobacco: Non-smoker
Alcohol: Occasional
Drug: None
Family History
Family History: Not pertinent
Allergies / Home Medications
Allergies reflects when Allergies were last updated in [facility].
Home Medications with original date entered in [facility]
Allergy/Medication List:
Allergies
Allergy/AdvReac Type Severity Reaction Status Date / Time
cat dander Allergy NASAL Verified 08/27/23 18:41
CONGESTION
dog dander Allergy NASAL Verified 08/27/23 18:41
CONGESTION
grass pollen Allergy VAL Verified 08/27/23 18:41
GRASS-NASAL
CONGESTION
mold Allergy NASAL Verified 08/27/23 18:41
CONGESTION
Penicillins Allergy Rash IN Verified 08/29/23 10:56
CHILDHOOD/tolerates
cefazolin
Home Medications
ropinirole 1 mg tablet 1 mg PO HS Neurological Condition 03/13/11
fluticasone propionate 230 mcg-salmeterol 21 mcg/actuation HFA inhaler (Advair HFA) 2 puff inhalation R BID Lung/Breathing Issues 08/27/23
gabapentin 600 mg tablet 600 mg PO TID Neurological Condition 08/27/23
rivaroxaban 20 mg tablet (Xarelto) 20 mg PO HS Blood clot prevention/tx 08/27/23
simvastatin 10 mg tablet 10 mg PO QPM High Cholesterol 08/27/23
amlodipine 5 mg tablet 5 mg PO DAILY 30 days #30 tabs 09/03/23
dapagliflozin propanediol 10 mg tablet (Farxiga) 10 mg PO DAILY 30 days #30 tabs 09/03/23
losartan 50 mg tablet 50 mg PO DAILY 12/01/23
trazodone 50 mg tablet 50 mg PO HS PRN sleep 12/01/23
Review of Systems
-
History Source: Patient
A 12 point ROS was completed and negative except as noted: Yes
Constitutional: Reports See HPI
EENT: Reports No Symptoms
Respiratory: Reports See HPI
Cardiac: Reports See HPI
Abdomen/GI: Reports No Symptoms
: Reports No Symptoms
Musculoskeletal: Reports No Symptoms
Skin: Reports See HPI
Neurological: Reports No Symptoms
Endocrine: Reports No Symptoms
Hematologic/Lymphatic: Reports No Symptoms
Psych: Reports No Symptoms
Physical Exam
Vital Signs
Vital Signs
Temp Pulse Resp BP Pulse Ox
99.9 F 79 19 98/48 91
12/01/23 21:09 12/01/23 21:30 12/01/23 21:30 12/01/23 21:20 12/01/23 21:30
Physical Exam
General: Well Developed, Well Nourished and No Apparent Distress
HEENT: NormoCephalic, Moist mucous membranes and Atraumatic
Respiratory: Clear
Cardiac: S1/S2 and Regular Rhythm; No Murmur or Rub
GI: Soft, Non Tender, Non Distended and Normal Bowel Sounds; No Organomegaly
Rectal: Deferred by Provider
Musculoskeletal: No Clubbing, No Cyanosis and No Edema
Skin: Other (left lower extremity swelling, erythema and tenderness ); No Rash
Neuro: Nonfocal/grossly intact
Laboratory Results
-
12/01/23 18:21
12/01/23 18:21
Laboratory Results
Lactic Acid 2.3 mmol/L (0.7-2.0) H 12/01/23 18:21
Total Bilirubin 1.3 mg/dl (0.2-1.3) 12/01/23 18:21
AST 28 U/L (14-36) 12/01/23 18:21
ALT 15 U/L (0-35) 12/01/23 18:21
Alkaline Phosphatase 124 U/L (38-126) 12/01/23 18:21
Data Reviewed
-
Lab Data: Labs Reviewed by me
Old Records: Reviewed
Impression/Plan
-
IMPRESSION:
PLAN:
# Sepsis (fever, leukocytosis, hypotension) secondary to recurrent left lower extremity cellulitis secondary to dog scratch
-Check blood cultures
-IV fluids
-Cefazolin
# Acute hypoxemic insufficiency secondary to HFpEF exacerbation
-Cardiac BNP of 600
-Chest x-ray shows mild pulmonary edema
-Patient requiring 3 L oxygen
-Check I's and O's, daily weights
-Will need to diurese once cellulitis/sepsis and hypotension has been treated
#Head trauma with nasal bruise
-CT head negative for any acute abnormality
# Hypokalemia
-Replete potassium
Acute HFpEF exacerbation
-Hold dapagliflozin
Coronary artery disease
Aortic stenosis
Essential hypertension
-Hold amlodipine, losartan due to hypertension
History of bilateral pulmonary embolism
-Continue Xarelto
History of CVA
Sleep apnea
COPD/asthma
Restless leg syndrome
-Continue ropinirole
Neuropathy
-Continue gabapentin
Hyperlipidemia
-Continue statin
Obesity
History of melanoma
Arthritis/spinal stenosis
Insomnia
-Continue trazodone
Full code
DVT prophylaxis�Xarelto
Cardiac diet
[2023-12-01] MEDS: KCL 40 MEQ PO (21:59)
[2023-12-01] MEDS: NSS 1000 IV (22:56)
[2023-12-01] MEDS: XARELTO 20 MG PO (22:57)
[2023-12-01] MEDS: NEURONTIN 300 MG PO (22:57)
[2023-12-01] MEDS: DESYREL 50 MG PO (22:57)
[2023-12-01] MEDS: REQUIP PO (23:03)
[2023-12-02] VITALS (22 sets, daily range): BP systolic 92–159; BP diastolic 35–89; PULSE 69–83; BMI 36.6
[2023-12-02] MEDS: ROXICODONE 5 MG PO ×2 (00:23→23:17)
--- NOTE | 2023-12-02 00:55 | PTCARENOTE ---
pt admitted from ED- pt is AAOx3- able to make needs known. on 5L NC 93%. PW intact d/t increased weakness- LLE redness and warmth, some generalized scabs and bruises noted. pt with c/o back pain, reports using oxycodone at home. notified covering
[employer]- orders entered for x1 5mg roxycodone. IV fluids hung and infusing. pt oriented to room, call betancourt within reach, care ongoing.
[2023-12-02 05:08] LABS: % Basophils 0.1 % (0-2); % Eosinophils 0.2 % (0-6); % Immature Granulocytes 0.3 % (0-0.5); % Lymphocytes 10.1 % (20.5-51.1); % Monocytes 17.1 % (1.7-9.3); % Neutrophils 72.2 % (42.2-75.2); Absolute Lymphocytes 1.2 10^3/uL (1.2-3.4); Absolute Neutrophils 8.3 10^3/uL (1.4-6.5); Hematocrit 37.7 % (37.0-47.0); Hemoglobin 12.1 g/dL (12.0-16.0); Mean Corp Hgb Conc. 32.1 g/dL (33.0-37.0); Mean Corpuscular Hgb 31.6 pg (27.0-31.0); Mean Corpuscular Volume 98.4 fL (81.0-99.0); Mean Platelet Volume 9.8 fL (7.4-10.4); Nucleated Red Blood Cells % 0 %; Platelet Count 162 10^3/uL (130-400); Red Blood Cell Count 3.83 10^6/uL (4.20-5.40); Red Cell Dist. Width 14.7 % (11.5-14.5); White Blood Cell Count 11.5 10^3/uL (4.8-10.8)
[2023-12-02] MEDS: ANCEF 5 IV ×3 (05:28→21:21)
[2023-12-02 05:35] LABS: ALT (SGPT) 11 U/L (0-35); AST (SGOT) 27 U/L (14-36); Albumin 3.1 g/dl (3.5-5.0); Alkaline Phosphatase 74 U/L (38-126); Blood Urea Nitrogen 19 mg/dl (7-17); Calcium 8.6 mg/dl (8.4-10.2); Carbon Dioxide 31 mmol/L (22-30); Chloride 101 mmol/L (98-107); Estimated Creatinine Clearance 46 ml/min; Glucose 107 mg/dl (70-99); Potassium 3.6 mmol/L (3.5-5.1); Sodium 135 mmol/L (135-145); Total Bilirubin 0.9 mg/dl (0.2-1.3); Total Protein 5.6 g/dl (6.3-8.2); eGFR 49.55
[2023-12-02] MEDS: ADVAIR HFA 230/21 MCG INHALER 2 PUFF INH ×2 (07:33→19:52)
--- NOTE | 2023-12-02 07:49 | W.PN.HOSP.TC ---
Addendum entered and electronically signed by Selene Decker MD 12/02/23 18:09:
pt seen and examined independently--agree with plan set forth by Dr. Talley
GENERAL: well developed, well nourished, female in no apparent distress
HEENT: NC--bloody scab on bridge of nose--O2 NC
HEART: regular rate and rhythm, +S1, +S2
LUNGS : clear to auscultation bilaterally
ABDOM: soft, nontender, nondistended, + bowel sounds
EXT: no cyanosis, clubbing--bilateral LE edema--redness and warmth left leg > right leg
NEUROLOGIC: grossly intact
Syncope--Likely vasovagal vs carotid sinus hypersensitivity given patient's history of aortic stenosis, age and atherosclerotic disease, sepsis criteria not met by patient--agree with checking ECHO and orthostatics(negative)--check LE US--await
cultures
Acute hypoxemic insufficiency--Most likely due to fluid overload from IVF--Chest x-ray shows mild pulmonary edema--Patient requiring 4 L oxygen, does not use oxygen at home--Stop IV fluid and start diuresis--Monitor I's and O's and trend
weight--Consider IV diuresis if weight starts trending up--Continue dapagliflozin, and losartan.
Cellulitis of left lower extremity--Presentation with fever 103.3--from dog scratch--Continue cefazolin, trend fever curve--Monitor for improvement
Head trauma with nasal bruise--CT head negative for any acute abnormality
Hypokalemia--Replete potassium
Essential hypertension--Continue amlodipine, losartan
History of bilateral pulmonary embolism--Continue Xarelto
History of CVA--Restless leg syndrome-Continue ropinirole
Neuropathy-Continue gabapentin
Hyperlipidemia-Continue statin
Obesity
History of melanoma
Arthritis/spinal stenosis
Insomnia-Continue trazodone
code status --Full code
DVT prophylaxis�Xarelto
Original Note:
Today's Communication/Plan
-
Stop IV fluid
Start diuresis
Monitor daily weights with I&O's
Assessment / Plan
Assessment / Plan
ASSESSMENT: 83-year-old female with past medical history of HFpEF, hypertension, bilateral PE on Xarelto, COPD, spinal stenosis who presented to the hospital 12/01/2023 with weakness, fever, and chills. Reported the following of 26 after having BM
and hitting the bridge of her nose. Denies head trauma, LOC, dizziness, headache, and facial pain. Also reports dog scratch 4 to 5 days ago and left lower extremity. Area is erythematous, swollen and painful.
CONDITIONS PRIOR TO ADMISSION:
Essential hypertension
Obesity
Bilateral pulmonary embolism
Hyperlipidemia
Primary osteoarthritis of right knee
History of CVA
Chronic venous insufficiency
CKD
History of hemorrhagic stroke
Sleep apnea
COPD/asthma
Coronary artery disease
Aortic stenosis
Impression/Plan:
Syncope
-Likely vasovagal vs carotid sinus hypersensitivity given patient's history of aortic stenosis, age and atherosclerotic disease, sepsis criteria not met by patient.
-Echocardiography.
-Orthostatic vital signs negative.
-Bilateral LE ultrasound.
-Blood cultures pending.
Acute hypoxemic insufficiency
Most likely due to fluid overload.
-Chest x-ray shows mild pulmonary edema.
-Patient requiring 4 L oxygen, does not use oxygen at home.
-Stop IV fluid and start diuresis.
-Monitor I's and O's and trend weight.
-Consider IV diuresis if weight starts trending up.
-Continue dapagliflozin, and losartan.
Cellulitis of left lower extremity.
-Presentation with fever 103.3.
-Continue cefazolin, trend fever curve.
-Monitor for improvement
Head trauma with nasal bruise
-CT head negative for any acute abnormality
Hypokalemia
-Replete potassium
Essential hypertension
-Continue amlodipine, losartan
History of bilateral pulmonary embolism
-Continue Xarelto
History of CVA
Restless leg syndrome
-Continue ropinirole
Neuropathy
-Continue gabapentin
Hyperlipidemia
-Continue statin
Obesity
History of melanoma
Arthritis/spinal stenosis
Insomnia
-Continue trazodone
Full code
DVT prophylaxis�Xarelto
Cardiac diet
Anticipated Discharge: > 48 hours
Subjective/Interval History
-
Date of Service: December 02, 2023
Objective Data
-
Labs:
Laboratory Results
12/02/23
04:59
WBC 11.5 H
Hgb 12.1
Hct 37.7
Plt Count 162
Sodium 135
Potassium 3.6
Chloride 101
Carbon Dioxide 31 H
BUN 19 H
Creatinine 1.1 H
Glucose 107 H
Calcium 8.6
Total Bilirubin 0.9
AST 27
ALT 11
Alkaline Phosphatase 74
Vital Signs:
MAX TEMP FOR 24 HOURS
12/01/23
18:04
Temp 103.3 F H
Vital Signs
Temp Pulse Resp BP Pulse Ox
98.1 F 56 12 111/61 97
12/02/23 03:28 12/02/23 07:36 12/02/23 07:36 12/02/23 06:00 12/02/23 07:36
I&O
12/01/23 12/02/23 12/03/23
06:59 06:59 06:59
Intake Total 820 / 820
Balance 820 / 820
Review of Systems
-
History Source: Patient
All other systems: Not reviewed unless documented
Constitutional: Reports No Symptoms; Denies Fever, Night Sweats or Chills
EENT: Reports No Symptoms Reported
Respiratory: Reports No Symptoms
Abdomen/GI: Reports No Symptoms; Denies Abdominal Pain, Nausea or Vomiting
Musculoskeletal: Reports No Symptoms
Skin: Reports Other (Right lower extremity swollen and erythematous)
Neuro: Reports No Symptoms
Physical Exam
-
General: No Apparent Distress, Comfortable and Conversant
HEENT: Normocephalic and Moist Mucous Membranes
Respiratory: Crackles (Mild bilateral crackles); Negative Wheezes or Rales
Cardiac: Regular Rhythm and S1/S2; Negative Murmur or Rub
GI: Soft, Nontender, Nondistended and Normal Bowel Sounds
Musculoskeletal: No Clubbing, No Cyanosis and No Edema (Moderate LE edema R>L)
Skin: Warm and Other (Warmth and redness of right lower extremity)
Neuro: Awake, Alert, Oriented, AO x 3 and No Motor Deficits
Psych: Calm
Data Reviewed
-
Diagnostic Radiology: Image personally visualized and interpreted, Report Reviewed by me and Discussed with Physician
CT Scan: Report Reviewed by me and Discussed with Physician
Labs: Labs Reviewed by me and Discussed with Physician
Old Records: Reviewed
[2023-12-02 09:21] LABS: Lactic Acid 1.5 mmol/L (0.7-2.0)
[2023-12-02] MEDS: NEURONTIN 300 MG PO ×3 (09:30→21:21)
[2023-12-02] MEDS: NSS 1000 IV (09:30)
--- NOTE | 2023-12-02 12:54 | PTCARENOTE ---
Pt presents as assessed. Aox3, very pleasant. NSR with prolonged QT on tele monitor. Sating mid 90's on 4L NC. IVF infusing as ordered. Denies pain at this time. at bedside, updated on plan of care. Able to make needs known, call betancourt within
reach.
--- NOTE | 2023-12-02 14:02 | CM ---
Patient seen at bedside with physician and residents. Patient states that she lives with her ED. Patient has a walker at home and was driving and independent prior to admission. Patient home is a 2 story home with a first floor set up.
Patient PCP is Dr. Henderson and she uses the [facility] in [place]. Patient has had [facility] in the past and been to [facility]. Patient would agree to accept [facility] in the future but would not want to go to [facility]. CM will continue to follow for discharge planning
needs.
Plan; home with VN vs SNF; pending PT/OT assessment
[2023-12-02] MEDS: LIPITOR 10 MG PO (18:34)
[2023-12-02] MEDS: XARELTO 20 MG PO (21:20)
[2023-12-02] MEDS: DESYREL 50 MG PO (21:21)
[2023-12-02] MEDS: REQUIP 1 MG PO (21:21)
[2023-12-03] VITALS (12 sets, daily range): BP systolic 101–141; BP diastolic 51–108; BMI 36.6; BMI 35.5
[2023-12-03] MEDS: ANCEF 5 IV ×3 (05:24→21:19)
--- NOTE | 2023-12-03 06:12 | PTCARENOTE ---
no acute events for this shift- pt was able to wean down to RA but after a few minutes oxygen dropped into 80s. placed back on 3L.
[2023-12-03] MEDS: ADVAIR HFA 230/21 MCG INHALER 2 PUFF INH ×2 (07:52→19:54)
--- NOTE | 2023-12-03 08:36 | W.PN.HOSP.TC ---
Addendum entered and electronically signed by Selene Decker MD 12/03/23 19:19:
pt seen and examined independently--agree with plan set forth by Dr. Talley
GENERAL: well developed, well nourished, female in no apparent distress
HEENT: NC--O2 NC
HEART: regular rate and rhythm, +S1, +S2
LUNGS : clear to auscultation bilaterally-faint wheeze
ABDOM: soft, nontender, nondistended, + bowel sounds
EXT: no cyanosis, clubbing--bilateral LE edema--redness and warmth left leg > right leg resolved
NEUROLOGIC: grossly intact
Syncope--Likely vasovagal vs carotid sinus hypersensitivity given patient's history of aortic stenosis, age and atherosclerotic disease, sepsis criteria not met by patient-- ECHO WNL and orthostatics(negative)--await LE US-- cultures negative
Acute hypoxemic insufficiency--Most likely due to fluid overload from IVF--Chest x-ray shows mild pulmonary edema--Patient requiring 4 L oxygen, does not use oxygen at home, wean O2--Stop IV fluid and start diuresis--Monitor I's and O's and trend
weight----Continue dapagliflozin, and losartan, and home O2
Cellulitis of left lower extremity--Presentation with fever 103.3--from dog scratch--Continue cefazolin, trend fever curve--resolved
Head trauma with nasal bruise--CT head negative for any acute abnormality
Hypokalemia--Replete potassium
Essential hypertension--Continue amlodipine, losartan
History of bilateral pulmonary embolism--Continue Xarelto
History of CVA--Restless leg syndrome-Continue ropinirole
Neuropathy-Continue gabapentin
Hyperlipidemia-Continue statin
Obesity
History of melanoma
Arthritis/spinal stenosis
Insomnia-Continue trazodone
code status --Full code
DVT prophylaxis�Xarelto
anticipate d/c tomorrow
Original Note:
Today's Communication/Plan
-
Echocardiography normal
Monitor I's and O's, daily weight
Continue antibiotics
Supplemental oxygen weaned off
Start oral steroids tomorrow and taper as needed
Assessment / Plan
Assessment / Plan
ASSESSMENT: 83-year-old female with past medical history of HFpEF, hypertension, bilateral PE on Xarelto, COPD, spinal stenosis who presented to the hospital 12/01/2023 with weakness, fever, and chills. Reported the following of 26 after having BM
and hitting the bridge of her nose. Denies head trauma, LOC, dizziness, headache, and facial pain. Also reports dog scratch 4 to 5 days ago and left lower extremity. Area is erythematous, swollen and painful.
CONDITIONS PRIOR TO ADMISSION:
Essential hypertension
Obesity
Bilateral pulmonary embolism
Hyperlipidemia
Primary osteoarthritis of right knee
History of CVA
Chronic venous insufficiency
CKD
History of hemorrhagic stroke
Sleep apnea
COPD/asthma
Coronary artery disease
Aortic stenosis
Impression/Plan:
Syncope
-Likely vasovagal vs carotid sinus hypersensitivity given patient's history of aortic stenosis, age and atherosclerotic disease, sepsis criteria not met by patient.
-Echocardiography unremarkable, LVEF 60-65%.
-Orthostatic vital signs negative.
-Blood cultures pending, no growth TD.
Acute hypoxemic insufficiency
-Most likely due to fluid overload vs PE given history of HFpEF.
-Patient previously requiring 4 L O2 NC, does not use oxygen at home, currently on room air saturating at 93%.
-LE suspicious of lymphedema, r/o venous stasis. Bilateral LE ultrasound pending.
-Chest x-ray shows mild pulmonary edema.
-Stop IV fluid and start Lasix p.o. 40 mg daily.
-Maintain O2 sat >92%, MAP>65.
History of HFpEF
-Presentation most likely due to heart failure exacerbation
-Continue dapagliflozin.
-Started oral Lasix 40 mg daily today.
-Monitor daily I's and O's and weights-I's and O's Deficits -850, Weight Trending down.
-Leg elevation, up and walking around.
Cellulitis of left lower extremity.
-Presentation with fever 103.3, Currently afebrile, WBC WNL.
-Continue cefazolin, trend fever curve.
-Monitor for improvement
Head trauma with nasal bruise
-CT head negative for any acute abnormality
Hypokalemia
-Replete potassium
Essential hypertension
-Continue amlodipine, losartan
History of bilateral pulmonary embolism
-Continue Xarelto
History of CVA
Restless leg syndrome
-Continue ropinirole
Neuropathy
-Continue gabapentin
Hyperlipidemia
-Continue statin
Obesity
History of melanoma
Arthritis/spinal stenosis
Insomnia
-Continue trazodone
Full code
DVT prophylaxis�Xarelto
Cardiac diet
Anticipated Discharge: 24 - 48 hours
Subjective/Interval History
-
Date of Service: December 03, 2023
Objective Data
-
Labs:
Laboratory Results
12/03/23
08:18
WBC Pending
Hgb Pending
Hct Pending
Plt Count Pending
Sodium Pending
Potassium Pending
Chloride Pending
Carbon Dioxide Pending
BUN Pending
Creatinine Pending
Glucose Pending
Calcium Pending
Vital Signs:
Vital Signs
Tmax for 24 hrs
12/02/23
03:28
Temp 98.1 F
Temp Pulse Resp BP Pulse Ox
98.3 F 66 15 101/76 93
12/03/23 04:13 12/03/23 08:00 12/03/23 08:00 12/03/23 08:00 12/03/23 08:00
I&O
12/02/23 12/03/23 12/04/23
06:59 06:59 06:59
Intake Total 820 / 820
Output Total 850 / 850
Balance 820 / 820 -850 / -850
Review of Systems
-
History Source: Patient
All other systems: Not reviewed unless documented
Constitutional: Reports No Symptoms; Denies Fever, Night Sweats or Chills
EENT: Reports No Symptoms Reported
Respiratory: Reports No Symptoms
Abdomen/GI: Reports No Symptoms; Denies Abdominal Pain, Nausea or Vomiting
Musculoskeletal: Reports No Symptoms
Skin: Reports Other (Right lower extremity swollen and erythematous)
Neuro: Reports No Symptoms
Physical Exam
-
General: No Apparent Distress, Comfortable and Conversant
HEENT: Normocephalic and Moist Mucous Membranes
Respiratory: Crackles (Mild bilateral crackles); Negative Wheezes or Rales
Cardiac: Regular Rhythm and S1/S2; Negative Murmur or Rub
GI: Soft, Nontender, Nondistended and Normal Bowel Sounds
Musculoskeletal: No Clubbing, No Cyanosis and No Edema (Moderate LE edema R>L)
Skin: Warm and Other (Warmth and redness of right lower extremity)
Neuro: Awake, Alert, Oriented, AO x 3 and No Motor Deficits
Psych: Calm and Intact Judgement/Insight
Data Reviewed
-
Diagnostic Radiology: Image personally visualized and interpreted, Report Reviewed by me and Discussed with Physician
CT Scan: Report Reviewed by me and Discussed with Physician
Ultrasound: Report Reviewed by me and Discussed with Physician
Medical Tests (Nuc Med, Echo etc): Report Reviewed by me, Discussed with Physician and Other (Echo)
Labs: Labs Reviewed by me and Discussed with Physician
Old Records: Reviewed
[2023-12-03 08:40] LABS: Hematocrit 37.9 % (37.0-47.0); Hemoglobin 12.9 g/dL (12.0-16.0); Mean Corpuscular Hgb 32.2 pg (27.0-31.0); Mean Corpuscular Volume 94.5 fL (81.0-99.0); Mean Platelet Volume 9.7 fL (7.4-10.4); Platelet Count 166 10^3/uL (130-400); Red Blood Cell Count 4.01 10^6/uL (4.20-5.40); Red Cell Dist. Width 14.6 % (11.5-14.5)
[2023-12-03 08:52] LABS: Blood Urea Nitrogen 14 mg/dl (7-17); Carbon Dioxide 30 mmol/L (22-30); Chloride 104 mmol/L (98-107); Estimated Creatinine Clearance 56 ml/min; Glucose 92 mg/dl (70-99); Potassium 3.5 mmol/L (3.5-5.1); Sodium 139 mmol/L (135-145); eGFR > 60.00
[2023-12-03] MEDS: FARXIGA 10 MG PO (09:05)
[2023-12-03] MEDS: NEURONTIN 300 MG PO ×3 (09:05→21:19)
[2023-12-03] MEDS: NORVASC 5 MG PO (09:08)
[2023-12-03] MEDS: COZAAR 50 MG PO (09:08)
[2023-12-03] MEDS: LASIX 40 MG PO (11:04)
--- NOTE | 2023-12-03 15:17 | CM ---
Patient seen at bedside with physician and residents. Patient also present. Patient stated that she would like to go home with [facility] if possible. CM sent tt to liaison requesting review to see if they could accept. CM will continue to follow
for discharge planning needs.
Plan; home with [facility]; pending assessment by [facility].
--- NOTE | 2023-12-03 16:05 | VNURNOTE ---
Home Health Liaison met with patient at 1530 to discuss [facility] nurse/therapy, visits, schedule and homebound status. Patient is agreeable and understands that visits at home will be 2-3 x per week to assess and teach medical management. Patient has a
scale and is able to log a daily weight.
[facility] brochure provided with contact information. Patient is aware that [facility] will contact her for start of care in 1-2 days after discharge from .
[facility] referral completed in [facility].
[2023-12-03] MEDS: LIPITOR 10 MG PO (17:00)
[2023-12-03] MEDS: XARELTO 20 MG PO (21:19)
[2023-12-03] MEDS: REQUIP 1 MG PO (21:19)
--- NOTE | 2023-12-03 22:17 | PTCARENOTE ---
pt being transferred to [facility] in stable condition report given all belongings sent
[2023-12-03] MEDS: ROXICODONE 5 MG PO (22:47)
--- NOTE | 2023-12-03 23:46 | PTCARENOTE ---
Pt received from [facility] able to make her needs known.Pt provided with CHF folder.PRN pain meds given for back pain as ordered. Pt oriented to room & call bet[place]ourt in reach.
[2023-12-04 03:25] VITALS: BP 130/65
[2023-12-04] MEDS: ANCEF 5 IV ×2 (05:05→13:04)
[2023-12-04 06:00] VITALS: BMI 35.1
[2023-12-04 07:25] LABS: % Basophils 0.4 % (0-2); % Eosinophils 2.1 % (0-6); % Immature Granulocytes 0.6 % (0-0.5); % Lymphocytes 24.2 % (20.5-51.1); % Neutrophils 58.7 % (42.2-75.2); Absolute Eosinophils 0.1 10^3/uL (0-0.7); Absolute Lymphocytes 1.2 10^3/uL (1.2-3.4); Absolute Monocytes 0.7 10^3/uL (0.1-0.6); Hematocrit 39.9 % (37.0-47.0); Hemoglobin 12.8 g/dL (12.0-16.0); Mean Corp Hgb Conc. 32.1 g/dL (33.0-37.0); Mean Corpuscular Hgb 31.5 pg (27.0-31.0); Mean Corpuscular Volume 98.3 fL (81.0-99.0); Mean Platelet Volume 9.8 fL (7.4-10.4); Nucleated Red Blood Cells % 0 %; Platelet Count 166 10^3/uL (130-400); Red Blood Cell Count 4.06 10^6/uL (4.20-5.40); Red Cell Dist. Width 14.6 % (11.5-14.5); White Blood Cell Count 5.1 10^3/uL (4.8-10.8)
[2023-12-04 07:38] LABS: Blood Urea Nitrogen 17 mg/dl (7-17); Calcium 9.3 mg/dl (8.4-10.2); Carbon Dioxide 29 mmol/L (22-30); Chloride 103 mmol/L (98-107); Estimated Creatinine Clearance 64 ml/min; Glucose 93 mg/dl (70-99); Potassium 3.4 mmol/L (3.5-5.1); Sodium 138 mmol/L (135-145); eGFR > 60.00
[2023-12-04 07:55] VITALS: BP 115/49; BP 122/90; BP 123/66; BP 125/59; PULSE 68; PULSE 81; PULSE 93
[2023-12-04] MEDS: ADVAIR HFA 230/21 MCG INHALER 2 PUFF INH (07:57)
--- NOTE | 2023-12-04 08:05 | W.PN.HOSP.TC ---
Addendum entered and electronically signed by Selene Decker MD 12/04/23 18:34:
pt seen and examined independently--agree with plan set forth by Dr. Talley
GENERAL: well developed, well nourished, female in no apparent distress
HEENT: NC/AT
HEART: regular rate and rhythm, +S1, +S2
LUNGS : clear to auscultation bilaterally-faint wheeze
ABDOM: soft, nontender, nondistended, + bowel sounds
EXT: no cyanosis, clubbing--bilateral LE edema--redness and warmth left leg > right leg resolved
NEUROLOGIC: grossly intact
Syncope--Likely vasovagal vs carotid sinus hypersensitivity given patient's history of aortic stenosis, age and atherosclerotic disease, sepsis criteria not met by patient-- ECHO WNL and orthostatics(negative)-- cultures negative
Acute hypoxemic insufficiency--Most likely due to fluid overload from IVF--Chest x-ray shows mild pulmonary edema--Patient now on room air (required 4 L oxygen) does not use oxygen at home--Stop IV fluid and start diuresis--Monitor I's and O's and
trend weight----Continue dapagliflozin, and losartan, and home O2
Cellulitis of left lower extremity--Presentation with fever 103.3--from dog scratch--Continue cefazolin, trend fever curve--resolved
Head trauma with nasal bruise (resolved)--CT head negative for any acute abnormality
Hypokalemia--Replete potassium
Essential hypertension--Continue amlodipine, losartan
History of bilateral pulmonary embolism--Continue Xarelto
History of CVA--Restless leg syndrome-Continue ropinirole
Neuropathy-Continue gabapentin
Hyperlipidemia-Continue statin
Obesity
History of melanoma
Arthritis/spinal stenosis
Insomnia-Continue trazodone
code status --Full code
DVT prophylaxis�Xarelto
Original Note:
Today's Communication/Plan
-
Replete potassium
Discharge planning
Assessment / Plan
Assessment / Plan
ASSESSMENT: 83-year-old female with past medical history of HFpEF, hypertension, bilateral PE on Xarelto, COPD, spinal stenosis who presented to the hospital 12/01/2023 with weakness, fever, and chills. Reported the following of 26 after having BM
and hitting the bridge of her nose. Denies head trauma, LOC, dizziness, headache, and facial pain. Also reports dog scratch 4 to 5 days ago and left lower extremity. Area is erythematous, swollen and painful.
CONDITIONS PRIOR TO ADMISSION:
Essential hypertension
Obesity
Bilateral pulmonary embolism
Hyperlipidemia
Primary osteoarthritis of right knee
History of CVA
Chronic venous insufficiency
CKD
History of hemorrhagic stroke
Sleep apnea
COPD/asthma
Coronary artery disease
Aortic stenosis
Impression/Plan:
Syncope
-Likely vasovagal vs carotid sinus hypersensitivity given patient's history of aortic stenosis, age and atherosclerotic disease, sepsis criteria not met by patient.
-Echocardiography unremarkable, LVEF 60-65%.
-Orthostatic vital signs negative.
-Blood cultures pending, no growth TD.
Acute hypoxemic insufficiency
-Most likely due to fluid overload vs PE given history of HFpEF.
-Currently saturating at 96% on room air, required 4 L O2 NC at presentation, does not use oxygen at home.
-LE suspicious of lymphedema, r/o venous stasis. Bilateral LE ultrasound pending.
-Chest x-ray shows mild pulmonary edema.
-Continue Lasix p.o. 40 mg daily.
-Maintain O2 sat >92%, MAP>65.
History of HFpEF
-Presentation most likely due to heart failure exacerbation
-Continue dapagliflozin.
-Started oral Lasix 40 mg daily today.
-Monitor daily I's and O's and weights-I's and O's Deficits -850, Weight Trending down.
-Leg elevation, up and walking around.
Cellulitis of left lower extremity.
-Presentation with fever 103.3, Currently afebrile, WBC WNL.
-Continue cefazolin, trend fever curve.
-Monitor for improvement
Head trauma with nasal bruise
-CT head negative for any acute abnormality
Hypokalemia
-Replete potassium
Essential hypertension
-Continue amlodipine, losartan
History of bilateral pulmonary embolism
-Continue Xarelto
History of CVA
Restless leg syndrome
-Continue ropinirole
Neuropathy
-Continue gabapentin
Hyperlipidemia
-Continue statin
Obesity
History of melanoma
Arthritis/spinal stenosis
Insomnia
-Continue trazodone
Full code
DVT prophylaxis�Xarelto
Cardiac diet
Anticipated Discharge: Today
Subjective/Interval History
-
Date of Service: December 04, 2023
Objective Data
-
Labs:
Laboratory Results
12/04/23
06:59
WBC 5.1
Hgb 12.8
Hct 39.9
Plt Count 166
Sodium 138
Potassium 3.4 L
Chloride 103
Carbon Dioxide 29
BUN 17
Creatinine 0.8
Glucose 93
Calcium 9.3
Vital Signs:
T.max 24 HRS
12/03/23
22:30
Temp 97.7 F
Vital Signs
Temp Pulse Resp BP Pulse Ox
97.7 F 70 18 130/65 96
12/04/23 03:25 12/04/23 03:25 12/04/23 03:25 12/04/23 03:25 12/04/23 03:25
I&O
12/03/23 12/04/23 12/05/23
06:59 06:59 06:59
Intake Total 960 / 960
Output Total 850 / 850
Balance -850 / -850 960 / 960
Review of Systems
-
History Source: Patient
All other systems: Not reviewed unless documented
Constitutional: Reports No Symptoms; Denies Fever, Night Sweats or Chills
EENT: Reports No Symptoms Reported
Respiratory: Reports No Symptoms
Abdomen/GI: Reports No Symptoms; Denies Abdominal Pain, Nausea or Vomiting
Musculoskeletal: Reports No Symptoms
Skin: Reports Other (Right lower extremity swollen and erythematous)
Neuro: Reports No Symptoms
Physical Exam
-
General: No Apparent Distress, Comfortable and Conversant
HEENT: Normocephalic and Moist Mucous Membranes
Respiratory: Negative Wheezes, Rales or Crackles
Cardiac: Regular Rhythm and S1/S2; Negative Murmur or Rub
GI: Soft, Nontender, Nondistended and Normal Bowel Sounds
Musculoskeletal: No Clubbing, No Cyanosis and No Edema (Moderate LE edema R>L)
Skin: Warm and Other (Warmth and redness of right lower extremity)
Neuro: Awake, Alert, Oriented, AO x 3 and No Motor Deficits
Psych: Calm and Intact Judgement/Insight
Data Reviewed
-
Diagnostic Radiology: Image personally visualized and interpreted, Report Reviewed by me and Discussed with Physician
CT Scan: Report Reviewed by me and Discussed with Physician
Ultrasound: Report Reviewed by me and Discussed with Physician
Medical Tests (Nuc Med, Echo etc): Report Reviewed by me, Discussed with Physician and Other (Echo)
Labs: Labs Reviewed by me and Discussed with Physician
Old Records: Reviewed
--- NOTE | 2023-12-04 08:12 | W.DCSUMMARY ---
Addendum entered and electronically signed by Selene Decker MD 12/04/23 19:22:
Full read and agree with summary as set forth by Dr. Talley.
Nothing further to add.
Original Note:
Discharge Summary
Discharge Data
Date of Admission: 12/01/23
Date of Discharge: 12/04/23
-
Pending Results: No
Hospital Course
Discharging Physician : Selene Decker MD; Domenic Talley MD
Disposition : Home
Primary care physician : Joe Henderson MD
Principal Discharge diagnosis : Vasovagal syncope, acute hypoxic insufficiency, cellulitis of LLE, head trauma with nasal bruise, hypokalemia
Chronic Discharge diagnosis : HFpEF, bilateral pulmonary embolism, history of CVA, hyperlipidemia, spinal stenosis, insomnia, coronary artery disease, sleep apnea, history of hemorrhagic stroke
Hospital Course : 83-year-old female with past medical history of HFpEF, hypertension, bilateral PE on Xarelto, COPD, spinal stenosis who presented to the ED on 12/01/2023 with weakness, fever, and chills. Reported the following of 26 after
having BM and hitting the bridge of her nose. At the time of presentation, she denied head trauma, LOC, dizziness, headache, and facial pain. She also reported that she was scratched by her dog 4 to 5 days prior to admission in her left lower
extremity which became increasingly swollen, painful and erythematous. Labs done in the ED was significant for increased WBC count, 10.9, head CT was unremarkable and lower extremity arterial ultrasound was also unremarkable. CXR suggested elevated
pulmonary venous pressure and mild pulmonary edema. She was admitted to the IMU for further evaluation and management.
During the course of her admission, patient's IV fluid was discontinued and she was started on Lasix 40 mg daily with improvement of respiratory symptoms. She was also evaluated with echocardiogram which reports mild aortic stenosis but normal LV
EF. Her fever subsided with IV cefazolin, with improvement of her cellulitis. Patient was subsequently transferred to the floors after 2 days where she was observed for 1 extra day. Patient's potassium was also repleted during this time. Patient
has been evaluated on he is now stable for discharge with instructions to follow-up with her primary care in less than 1 week. She was restarted on Lasix 40 mg twice daily, and cephalexin for 3 days with potassium tablets for 3 days and was
instructed to check her BMP in 3 days..
Important imaging findings : CXR 12/01/2023 with cephalization of the pulmonary vasculature suggesting elevated pulmonary venous pressure/borderline pulmonary edema.
Echocardiogram 12/03/2023 LVEF 60-65%, mild aortic stenosis.
Discharge Plan
-
Patient Disposition: Home (Routine Discharge)
Discharge Diagnosis/Procedures: Vasovagal Syncope, Acute hypoxemic insufficiency, CHF exacerbation, Acute Cellulitis of left leg, pulmonary edema, essential hypertension, chronic neuropathy, hyperlipidemia, restless leg syndrome
Condition: Good
Diet: Low Fat and Low Cholesterol
Activity: As tolerated
Additional Activity: With a walker
Driving Restrictions: As prior to admission
Bathing Restrictions: None
Referrals:
Joe Henderson MD [Family Provider] - in less than 1 week
Additional Discharge Medication Instructions: Start cephalexin 500 mg tablets by mouth twice daily
Start furosemide 40 mg tablets by mouth twice daily
Start Potassium tablets, once daily and check blood work (BMP) in 3 days.
Prescriptions:
New
cephalexin 500 mg tablet
1,000 mg PO Q12H Qty: 6 0RF
furosemide 40 mg Tablet
40 mg PO BID Qty: 60 0RF
potassium chloride [Klor-Con M20] 20 mEq tablet,ER particles/crystals
20 meq PO DAILY Qty: 30 0RF
Continued
ropinirole 1 MG tablet
1 mg PO HS
Rx Instructions:
1-3 hour before bedtime
gabapentin 600 mg Tablet
600 mg PO TID
simvastatin 10 mg Tablet
10 mg PO QPM
fluticasone propion-salmeterol [Advair HFA] 230-21 mcg/actuation Hfa Aerosol Inhaler
2 puff INHALATION R BID
Xarelto 20 MG tablet
20 mg PO HS
losartan 50 mg tablet
50 mg PO DAILY
trazodone 50 mg tablet
50 mg PO HS PRN (Reason: sleep)
oxycodone 5 mg Tablet
5 mg PO Q4H PRN (Reason: back pain)
amlodipine 5 mg tablet
5 mg PO DAILY
dapagliflozin propanediol [Farxiga] 10 mg tablet
10 mg PO DAILY
Discharge Orders:
Discharge Patient (As Directed); Ordered 12/04/23
Ordered By: Domenic Talley
Discharge Date and Time
Discharge Date/Time: 12/04/23 15:24
Print Language: LITHUANIAN
[2023-12-04 08:52] LABS: Magnesium 2.2 mg/dl (1.6-2.3)
[2023-12-04] MEDS: NEURONTIN 300 MG PO (09:47)
[2023-12-04] MEDS: COZAAR 50 MG PO (09:47)
[2023-12-04] MEDS: LASIX 40 MG PO (09:47)
[2023-12-04] MEDS: FARXIGA 10 MG PO (09:47)
[2023-12-04] MEDS: NORVASC 5 MG PO (09:47)
[2023-12-04] MEDS: FLUSH (NSS) 1 FLUSH IV (09:48)
[2023-12-04 11:30] VITALS: BP 121/63
[2023-12-04] MEDS: KCL 40 MEQ PO (13:04)
--- NOTE | 2023-12-04 13:45 | CM ---
Agnes is being discharged to home today with [facility] services. No additional needs identified.
Plan: home with [facility]. Referral sent via [facility] by [facility] Liaison.
== END 2023-12-04 15:24 | disposition home health service (06) | DRG 602 ==
LOC: 4 EAST ACU 21:56
PROVIDERS: Emergency Medicine; Physician Assistant; Student in an Organized Health Care Education/Training Program; ADMITTING PHYSICIAN Hospitalist; ATTENDING PHYSICIAN Internal Medicine; EMERGENCY PHYSICIAN Emergency Medicine; FAMILY PHYSICIAN Internal Medicine
DX: L03.116 Cellulitis of left lower limb (principal); I50.33 Acute on chronic diastolic (congestive) heart failure; I13.0 Hypertensive heart and chronic kidney disease with heart failure and stage 1 through stage 4 chronic kidney disease, or unspecified chronic kidney disease; R09.02 Hypoxemia; J44.9 Chronic obstructive pulmonary disease, unspecified; G47.30 Sleep apnea, unspecified; G25.81 Restless legs syndrome; E87.6 Hypokalemia; I35.0 Nonrheumatic aortic (valve) stenosis; K21.9 Gastro-esophageal reflux disease without esophagitis; E78.5 Hyperlipidemia, unspecified; S00.33XA Contusion of nose, initial encounter; N18.9 Chronic kidney disease, unspecified; E66.9 Obesity, unspecified; G47.00 Insomnia, unspecified; W18.12XA Fall from or off toilet with subsequent striking against object, initial encounter; Y93.89 Activity, other specified; Y92.002 Bathroom of unspecified non-institutional (private) residence as the place of occurrence of the external cause; S80.812A Abrasion, left lower leg, initial encounter; Y93.K9 Activity, other involving animal care; Y93.9 Activity, unspecified; Y92.009 Unspecified place in unspecified non-institutional (private) residence as the place of occurrence of the external cause; Z79.01 Long term (current) use of anticoagulants; Z86.73 Personal history of transient ischemic attack (TIA), and cerebral infarction without residual deficits; Z86.711 Personal history of pulmonary embolism; Z68.35 Body mass index [BMI] 35.0-35.9, adult; Z11.52 Encounter for screening for COVID-19; Z85.820 Personal history of malignant melanoma of skin; Z88.0 Allergy status to penicillin
CPT/HCPCS: 70450; 71046; 80048; 80053; 81003; 83605; 83735; 83880; 85025; 85027; 87040; 87502; 87811; 93005; 93306; 93922; 93925; 94640; 96361; 96374; 99285

== ENCOUNTER → 2023-12-07 11:24 | Outpatient (REF) | payer OTHER, SELFPAY ==
[2023-12-07 12:54] LABS: Blood Urea Nitrogen 26 mg/dl (7-17); Calcium 9.8 mg/dl (8.4-10.2); Carbon Dioxide 32 mmol/L (22-30); Chloride 102 mmol/L (98-107); Glucose 88 mg/dl (70-99); Potassium 4.4 mmol/L (3.5-5.1); Sodium 140 mmol/L (135-145); eGFR 44.64
== END ==
LOC: REG 11:24
PROVIDERS: ATTENDING PHYSICIAN Internal Medicine
DX: I10 Essential (primary) hypertension (principal); I50.32 Chronic diastolic (congestive) heart failure
CPT/HCPCS: 36415; 80048

== ENCOUNTER → 2024-03-30 12:14 | Outpatient (REF) | payer OTHER, SELFPAY ==
[2024-03-30 14:17] LABS: Albumin 4.1 g/dl (3.5-5.0); Blood Urea Nitrogen 24 mg/dl (7-17); Calcium 9.7 mg/dl (8.4-10.2); Carbon Dioxide 30 mmol/L (22-30); Chloride 100 mmol/L (98-107); Glucose 94 mg/dl (70-99); Phosphorus 4.3 mg/dl (2.5-4.5); Potassium 4.5 mmol/L (3.5-5.1); Sodium 142 mmol/L (135-145); eGFR 44.36
== END ==
LOC: REG 12:14
PROVIDERS: ATTENDING PHYSICIAN Internal Medicine
DX: I50.30 Unspecified diastolic (congestive) heart failure (principal); I10 Essential (primary) hypertension; I87.2 Venous insufficiency (chronic) (peripheral)
CPT/HCPCS: 36415; 80069

== ENCOUNTER → 2024-08-04 07:53 | Outpatient (REF) | payer OTHER, SELFPAY ==
[2024-08-04 09:21] LABS: Albumin 4.3 g/dl (3.5-5.0); Blood Urea Nitrogen 20 mg/dl (7-17); Calcium 9.8 mg/dl (8.4-10.2); Carbon Dioxide 32 mmol/L (22-30); Chloride 101 mmol/L (98-107); Glucose 99 mg/dl (70-99); Phosphorus 3.7 mg/dl (2.5-4.5); Potassium 4.5 mmol/L (3.5-5.1); Sodium 140 mmol/L (135-145); eGFR 44.36
== END ==
LOC: REG 07:53
PROVIDERS: ATTENDING PHYSICIAN Internal Medicine; OTHER PHYSICIAN Internal Medicine
DX: I10 Essential (primary) hypertension (principal)
CPT/HCPCS: 36415; 80069

== ENCOUNTER → 2024-10-23 11:24 | Outpatient (REF) | payer OTHER, SELFPAY | LOC: RAD 11:24 | PROVIDERS: ATTENDING PHYSICIAN Internal Medicine | DX: J45.909 Unspecified asthma, uncomplicated (principal) | CPT/HCPCS: 71046 ==

== ENCOUNTER → 2024-12-27 09:29 | Outpatient (REF) | payer OTHER, SELFPAY ==
[2024-12-27 10:52] LABS: Hematocrit 40.7 % (37.0-47.0); Hemoglobin 13.1 g/dL (12.0-16.0); Mean Corp Hgb Conc. 32.2 g/dL (33.0-37.0); Mean Corpuscular Volume 103.8 fL (81.0-99.0); Nucleated Red Blood Cells % 0 %; Platelet Count 152 10^3/uL (130-400); Red Cell Dist. Width 15.8 % (11.5-14.5)
[2024-12-27 11:22] LABS: ALT (SGPT) 15 U/L (0-35); AST (SGOT) 24 U/L (14-36); Albumin 4.0 g/dl (3.5-5.0); Alkaline Phosphatase 80 U/L (38-126); Blood Urea Nitrogen 18 mg/dl (7-17); Calcium 9.5 mg/dl (8.4-10.2); Carbon Dioxide 28 mmol/L (22-30); Chloride 106 mmol/L (98-107); Glucose 99 mg/dl (70-99); HDL Cholesterol 52 mg/dl; LDL Cholesterol, Calculated 78 mg/dl; Potassium 4.6 mmol/L (3.5-5.1); Sodium 140 mmol/L (135-145); Total Protein 6.6 g/dl (6.3-8.2); Very Low Density Lipoprotein 22 mg/dl (0-30); eGFR 49.24
== END ==
LOC: REG 09:29
PROVIDERS: ATTENDING PHYSICIAN Internal Medicine
DX: I10 Essential (primary) hypertension (principal); I11.0 Hypertensive heart disease with heart failure; E66.9 Obesity, unspecified; E78.00 Pure hypercholesterolemia, unspecified
CPT/HCPCS: 36415; 80053; 80061; 83880; 84443; 85025

== ENCOUNTER → 2025-04-16 14:19 | Outpatient (REF) | payer OTHER, SELFPAY ==
[2025-04-16 15:00] LABS: Hematocrit 42.3 % (37.0-47.0); Hemoglobin 13.6 g/dL (12.0-16.0); Mean Corp Hgb Conc. 32.2 g/dL (33.0-37.0); Mean Corpuscular Volume 97.9 fL (81.0-99.0); Nucleated Red Blood Cells % 0 %; Platelet Count 149 10^3/uL (130-400); Red Cell Dist. Width 16.0 % (11.5-14.5)
[2025-04-16 15:21] LABS: ALT (SGPT) 15 U/L (0-35); AST (SGOT) 25 U/L (14-36); Albumin 4.0 g/dl (3.5-5.0); Alkaline Phosphatase 86 U/L (38-126); Blood Urea Nitrogen 17 mg/dl (7-17); Calcium 9.7 mg/dl (8.4-10.2); Carbon Dioxide 31 mmol/L (22-30); Chloride 104 mmol/L (98-107); Glucose 89 mg/dl (70-99); Potassium 4.5 mmol/L (3.5-5.1); Sodium 140 mmol/L (135-145); Total Protein 6.9 g/dl (6.3-8.2); eGFR 48.94
== END ==
LOC: REG 14:19
PROVIDERS: ATTENDING PHYSICIAN Internal Medicine
DX: I10 Essential (primary) hypertension (principal); I50.9 Heart failure, unspecified; R60.9 Edema, unspecified
CPT/HCPCS: 36415; 80053; 83880; 85025

== ENCOUNTER 2025-05-19 15:19 | Emergency (ER) | payer OTHER, SELFPAY ==
[2025-05-19 15:22] VITALS: BP 144/78
[2025-05-19 15:59] VITALS: BMI 36.5
[2025-05-19 16:12] VITALS: BP 130/77
[2025-05-19 16:31] LABS: Hematocrit 38.5 % (37.0-47.0); Hemoglobin 12.5 g/dL (12.0-16.0); Mean Corp Hgb Conc. 32.5 g/dL (33.0-37.0); Mean Corpuscular Volume 100.8 fL (81.0-99.0); Platelet Count 160 10^3/uL (130-400); Red Cell Dist. Width 17.2 % (11.5-14.5)
[2025-05-19 16:48] LABS: Blood Urea Nitrogen 20 mg/dl (7-17); Calcium 9.3 mg/dl (8.4-10.2); Carbon Dioxide 33 mmol/L (22-30); Chloride 104 mmol/L (98-107); Estimated Creatinine Clearance 46 ml/min; Glucose 93 mg/dl (70-99); Sodium 142 mmol/L (135-145); eGFR 48.94
--- NOTE | 2025-05-19 16:50 | ED.GENMED ---
History of Present Illness
General
Chief Complaint: Swelling
Source: patient and spouse
Time Seen by Provider: 05/19/25 16:16
History of Present Illness
History of Present Illness:
85-year-old female with past medical history of previous CVA, previous pulmonary embolism, hypertension, hyperlipidemia presenting to the emergency department for evaluation of worsening lower extremity and abdominal edema that been ongoing for a
few weeks, patient becoming slightly more short of breath so she contacted the cardiology office today and was recommended to come to the ER for further evaluation. She does report some exertional dyspnea but no orthopnea or PND, cough, fevers or
infectious symptoms. She reports good compliance with her diuretics but does note that it is not fun to be on the medications due to a frequent need to urinate. Patient is denying any chest pain or any other concerns presently.
Past History
Past History
ED Past Medical History: CVA, GERD, HTN, Other (pulmonary embolism, neuropathy) and Other (Restless leg syndrome)
ED Past Surgical History: Orthopedic and Tonsilectomy
Social History
Tobacco: Non-smoker
Alcohol: Occasional
Drug: None
Personal:
Living: with family
Family History
Family History: Diabetes, CAD and Other (Peripheral neuropathy)
Review of Systems
Review of Systems
All Other Systems: ROS reviewed and negative except as documented in HPI and ROS
Phy Exam
Physical Exam
Physical Exam:
GENERAL: Alert , in no apparent distress
HEAD: Normocephalic atraumatic
EYE: conjunctiva clear
NECK: Supple, no significant adenopathy.
ENT: o/p clr, mmm.
CARDIAC: Regular rate and rhythm
LUNGS: Clear breath sounds bilaterally, no acute respiratory distress, no wheezes/rales/rhonchi
ABDOMEN: Slightly distended but nontender, normoactive bowel sounds
NEUROLOGICAL: Alert and oriented
SKIN: Warm and dry, skin intact.
MUSCULOSKELETAL: well perfused. Nonpitting edema through the knees bilaterally
PSYCH: Normal and appropriate interaction.
Scores
Heart Failure Risk
Heart Failure Risk Score: Yes
History of Stroke or TIA: Yes
History of intubation for respiratory distress: No
Heart rate on ED arrival >/= 110: No
SaO2 <90% on arrival on room air: No
HR >/=110 during 3min walk test (or too ill to perform test): Yes
ECG has acute ischemic changes: No
Urea >/=12mmol/L (BUN 33.6mg/dL): No
Serum CO2>/=35mmol/L: No
Troponin I or T elevated to CA Level (0.4mg/dL): No
NT-proBNP >/=5,000ng/L (5,000pg/ml): No
HF Risk Score: 3
Admission Status: HIGH RISK 15.9% Consider SNF treatment or admission to hospital
Heart Score for Chest Pain Patients
STEMI patient?: Not applicable
Withdrawal Assessment of Alcohol
Withdrawal Assessment Completed?: Not applicable
Course
Orders/Labs/Results
Orders:
Orders
05/19/25 16:13
CXR2 [CR Chest - 2 Views ] Urgent
Comment:
Reason For Exam: SOB
05/19/25 16:15
Basic Metabolic Panel Urgent
Comment: HEM
Complete Blood Count/With Diff Urgent
Manual Differential Urgent
NT-proBNP Urgent
05/19/25 16:16
Electrocardiogram (*1) Urgent
Reason for Study: Other
Other Reason for Exam: edema
EKG- Treatment ONCE
05/19/25 16:17
Urinalysis Reflex To Culture Urgent
05/19/25 16:59
Furosemide [Lasix] 40 mg IV NOW STA
Abnormal Lab Results
05/19/25
16:15
RBC 3.82 L 10^6/uL
(4.20-5.40)
MCV 100.8 H fL
(81.0-99.0)
MCH 32.7 H pg
(27.0-31.0)
MCHC 32.5 L g/dL
(33.0-37.0)
RDW 17.2 H %
(11.5-14.5)
Monocytes (Manual) 18 H %
(2-9)
Carbon Dioxide 33 H mmol/L
(22-30)
BUN 20 H mg/dl
(7-17)
Creatinine 1.1 H mg/dL
(0.6-1.0)
05/19/25 16:15
05/19/25 16:15
Vital Signs
Initial and Last Documented VS:
Initial Vital Signs
Temp Pulse Resp BP Pulse Ox
97.6 F 77 20 144/78 94
05/19/25 15:22 05/19/25 15:22 05/19/25 15:22 05/19/25 15:22 05/19/25 15:22
Last Documented Vital Signs
Temp Pulse Resp BP Pulse Ox
97.6 F 77 20 144/78 94
05/19/25 15:22 05/19/25 15:22 05/19/25 15:22 05/19/25 15:22 05/19/25 16:55
MDM/Problems Addressed
Differential Diagnosis Includes:
CHF
Valvular disease
Renal disease
PVD
Ascites/Malignancy
Arrhythmia
MDM/Problems Addressed:
85-year-old female presenting to the ER at the request allergy for worsening edema and exertional dyspnea. Hemodynamically stable on exam. She does have edema of the legs and lower part of the. She is in no acute respiratory distress. Labs,
chest x-ray and EKG ordered. Given she was sent to the ER by cardiology will discuss with them for treatment plan and ultimate disposition.
Chronic conditions affecting care: Other (Congestive heart failure)
*Radiology
Radiology exam reviewed: preliminary read by ED provider (Cardiomegaly but no effusions)
*Pulse Oximetry
SaO2: 94
Oxygen Mode of Delivery: Room air
Patient hypoxic: no
*EKG
Heart Rate: 63
Rate: normal
Rhythm: sinus
[place]it: left axis deviation
Ischemia: no ischemia
*Account Receivable Clerk Interpretation
Rate: normal
Heart Rate: 61
Rhythm: sinus
*Critical Care Note
Total Time (30-74mins, 75-104mins- exclusive of procedures): Not Applicable
Data Reviewed
Review of Other/Old Records Reveals: Records
Comment
Comment:
Last echocardiogram done in November 2023 showed the following:
CONCLUSIONS
Normal left ventricular size, wall thickness and systolic function.
LV ejection fraction is 60-65%.
Mild aortic stenosis. Peak gradient 24 mmHg and a mean gradient 13 mmHg
No prior study available for comparison.
Patient Management
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
Escalation/DeEscalation of care consider admission/obs:
Case discussed with cardiology, doubts acute CHF exacerbation given BNP is within normal limits. Will give dose of Lasix 40 mg IV here and cardiology will arrange for an outpatient echocardiogram to be completed early this week. Patient advised on
return precautions to the ER but is otherwise stable for discharge home.
ED Attending Note
-
Portions of this chart may have been created with voice recognition software.� Occasional wrong word or��sound alike� substitutions may have occurred due to the inherent limitations of voice recognition software.
Discharge Plan
Departure
Patient Disposition: Home (Routine Discharge)
Date of Disposition: 05/19/25
Time of Disposition: 17:07
Patient with high blood pressure during this ER visit?: Yes
Discharge Problem:
Edema, CKD (chronic kidney disease)
Instructions: *CBC Heart Failure Instructions
Prescriptions:
No Action
ropinirole 1 MG tablet
1 mg PO HS
Rx Instructions:
1-3 hour before bedtime
gabapentin 600 mg Tablet
600 mg PO TID
simvastatin 10 mg Tablet
10 mg PO QPM
fluticasone propion-salmeterol [Advair HFA] 230-21 mcg/actuation Hfa Aerosol Inhaler
2 puff INHALATION R BID
Xarelto 20 MG tablet
20 mg PO HS
losartan 50 mg tablet
50 mg PO DAILY
trazodone 50 mg tablet
50 mg PO HS PRN (Reason: sleep)
oxycodone 5 mg Tablet
5 mg PO Q4H PRN (Reason: back pain)
amlodipine 5 mg tablet
5 mg PO DAILY
dapagliflozin propanediol [Farxiga] 10 mg tablet
10 mg PO DAILY
cephalexin 500 mg tablet
1,000 mg PO Q12H Qty: 6 0RF
furosemide 40 mg Tablet
40 mg PO BID Qty: 60 0RF
potassium chloride [Klor-Con M20] 20 mEq tablet,ER particles/crystals
20 meq PO DAILY Qty: 30 0RF
Referrals:
Joe Henderson MD [Family Provider, Internal Medicine]
Interventions
Interventions:
*Risk Screen - Suicide Last Done: 05/19/25 15:59
*General Assessment Last Done: 05/19/25 15:59
*Neglect/Abuse Screening Last Done: 05/19/25 15:59
*ED COVID-19 Vaccine History Last Done: 05/19/25 15:59
*ED Influenza Vaccine History Last Done: 05/19/25 15:59
Discharge Date and Time
Print Language: MALAY
[2025-05-19 16:51] LABS: Absolute Neutrophils -Man Diff 2.5 10^3/uL (1.4-6.5); Normal RBC Morphology Yes; Platelets Checked Yes; Total Cells Counted 100
[2025-05-19] MEDS: LASIX 40 MG IV (17:14)
== END 2025-05-19 17:35 | disposition home or self-care (01) ==
LOC: EMR 15:19
PROVIDERS: EMERGENCY PHYSICIAN Emergency Medicine; FAMILY PHYSICIAN Internal Medicine
DX: R60.0 Localized edema (principal); I13.0 Hypertensive heart and chronic kidney disease with heart failure and stage 1 through stage 4 chronic kidney disease, or unspecified chronic kidney disease; N18.9 Chronic kidney disease, unspecified; I50.9 Heart failure, unspecified; I35.0 Nonrheumatic aortic (valve) stenosis; E78.5 Hyperlipidemia, unspecified; K21.9 Gastro-esophageal reflux disease without esophagitis; G62.9 Polyneuropathy, unspecified; G25.81 Restless legs syndrome; Z86.73 Personal history of transient ischemic attack (TIA), and cerebral infarction without residual deficits; Z86.711 Personal history of pulmonary embolism; Z82.49 Family history of ischemic heart disease and other diseases of the circulatory system; Z84.89 Family history of other specified conditions
CPT/HCPCS: 99284; 96374; 71046; 80048; 83880; 85025; 93005

== ENCOUNTER → 2025-05-23 09:51 | Outpatient (REF) | payer OTHER, SELFPAY | LOC: RCS 09:51 | PROVIDERS: ATTENDING PHYSICIAN Internal Medicine Cardiovascular Disease; FAMILY PHYSICIAN Internal Medicine | DX: I50.32 Chronic diastolic (congestive) heart failure (principal); R06.02 Shortness of breath | CPT/HCPCS: 93306 ==